=== PATIENT | female | born 1965 | race African-American/Black ===

== ENCOUNTER → 2018-02-03 | Day surgery (SDC) | payer OTHER ==
--- NOTE | 2018-02-04 16:27 | PATH ---
Surgical Pathology Report Patient Name: MP SCHWARTZ [facility]. Rec. #: [id number] /Age/Gender: 1965 (Age: 52) / F Account: [id number] Location: [facility] Taken: 02/03/2018 Received: 02/03/2018 Reported: 02/04/2018 Physicians: Isacc Glaser M.D. Specimen(s) Received A: LEFT BREAST SPECIMEN WITH CALCIFICATIONS B: LEFT BREAST SPECIMEN WITHOUT CALCIFICATIONS Clinical History Nonpalpable lesion Mammographic findings: Microcalcification, suspicious Final Diagnosis A. 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 B. BREAST, LEFT, WITHOUT CALCIFICATIONS, STEREOTACTIC BIOPSY: BENIGN BREAST TISSUE SHOWING SCANT FRAGMENT OF FIBROADENOMA. Electronically Signed Bria Martinez M.D. Gross Description A. Received in formalin labeled "left breast with calcifications," is a 2.5 x 2.5 x 0.3 cm aggregate of ascencio-yellow, irregular to cylindrical portions of fibroadipose tissue. The formalin is filtered and the specimen is entirely submitted in 2 cassettes. B. Received in formalin labeled "left breast without calcifications," is a 1.5 x 1.5 x 0.3 cm aggregate of multiple ascencio-yellow, irregular to cylindrical portions of fibroadipose tissue. The formalin is filtered and the specimen is entirely submitted in one cassette. Time to formalin fixation: 5 minutes Total formalin fixation time: Approximately 7 hours. /02/03/2018 saudi02/03/2018
== END | disposition home or self-care (01) ==
LOC: FMAMMOTONE 09:04
PROVIDERS: ATTEND Internal Medicine
PROC: 0HBU3ZX Excision of Left Breast, Percutaneous Approach, Diagnostic (ICD-10-PCS; principal; 2018-02-03)
DX: D24.2 Benign neoplasm of left breast (principal); N64.89 Other specified disorders of breast; R92.1 Mammographic calcification found on diagnostic imaging of breast
CPT/HCPCS: 19081; 88305-TC

== ENCOUNTER 2018-06-14 09:53 | Inpatient (IN) | payer OTHER ==
--- NOTE | 2018-06-14 12:02 | PDOC ---
History of Present Illness - General Chief Complaint: Vomiting/Diarrhea Stated Complaint: vomiting Time Seen by Provider: 06/14/18 12:01 History Source: Patient Exam Limitations: No Limitations - History of Present Illness Initial Comments: Pt is a 53 yo F, with PMH of HTN, CHF, CAD (with cardiac stents), COPD, and DM, who is presenting with complaints of generalized body aches, sore throat, subjective fevers/chills, NBNB vomiting and nausea, and loose stools x3 days. She has also had cough productive of "yellowish" sputum, which is different from her normal sputum. She has had mid-sternal chest pressure after coughing for the same time period, that has been unchanged. Last tylenol dose was 500 mg PO at 6 am this morning. Pt has had limited appetite but has tolerated a minimal amount of fluids. Pt denies any headache, vision changes, syncope, palpitations, SOB, urinary symptoms, or leg swelling. Social: Pt smokes 2-3 cigarettes per day. Pt denies any alcohol or drug use. 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 Surgical: gastric obstruction repair/anastamosis, cardiac stents Family: no relevant history. 06/14/18 13:24 Past History - Travel Traveled outside of the country in the last 30 days: No Close contact w/someone who was outside of country & ill: No - Past Medical History Allergies/Adverse Reactions: Allergies Allergy/AdvReac Type Severity Reaction Status Date / Time No Known Allergies Allergy Verified 03/31/16 14:16 Home Medications: Ambulatory Orders Amlodipine Besylate [Norvasc -] 10 mg PO DAILY 01/07/16 Canagliflozin [Invokana] 100 mg PO DAILY 01/07/16 Glimepiride [Amaryl -] 4 mg PO DAILY 03/31/16 Anemia: No Asthma: No Cancer: No Cardiac Disorders: Yes (CHF) CVA: No COPD: Yes CHF: Yes Dementia: No Diabetes: Yes GI Disorders: No Disorders: No HTN: Yes Hypercholesterolemia: No Liver Disease: No Seizures: No Thyroid Disease: No - Surgical History Abdominal Surgery: No Appendectomy: No Cardiac Surgery: Yes (STENTS) Cholecystectomy: No Lung Surgery: No Neurologic Surgery: No Orthopedic Surgery: No - Immunization History Immunization Up to Date: No - Suicide/Smoking/Psychosocial Hx Smoking Status: Yes Smoking History: Current every day smoker Have you smoked in the past 12 months: Yes Number of Cigarettes Smoked Daily: 3 Information on smoking cessation initiated: No 'Breaking Loose' booklet given: 03/31/16 Hx Alcohol Use: No Drug/Substance Use Hx: No Substance Use Type: None Hx Substance Use Treatment: No Review of Systems - Review of Systems Able to Perform ROS?: Yes Is the patient limited Sinhala proficient: No Constitutional: Yes: Chills, Fever, Loss of Appetite, Malaise, Weight Stable. No: Diaphoresis, Night Sweats, Weakness HEENTM: Yes: See HPI, Throat Pain, Throat Swelling. No: Recent change in vision , Ear Pain, Ear Discharge, Nose Congestion, Hearing Loss, Mouth Pain, Difficulty Swallowing Respiratory: Yes: See HPI, Cough, Productive cough. No: Orthopnea, Shortness of Breath, Wheezing, Hemoptysis Cardiac (ROS): Yes: Chest Tightness. No: Chest Pain, Edema, Irregular Heart Rate, Lightheadedness, Palpitations, Syncope ABD/GI: Yes: Diarrhea, Nausea, Poor Appetite, Vomiting. No: Constipated, Difficulty Swallowing, Poor Fluid Intake, Abdominal cramping : No: Burning, Dysuria, Pain, Urgency Musculoskeletal: No: Back Pain, Joint Pain, Muscle Weakness Integumentary: No: Rash Neurological: No: Headache, Numbness, Weakness, Unsteady Gait, Dizziness Psychiatric: No: Sleep Pattern Change, Change in Appetite Endocrine: No: Increased Urine, Change in Weight Hematologic/Lymphatic: No: Anemia, Blood Clots, Easy Bleeding, Easy Bruising All Other Systems: Reviewed and Negative *Physical Exam - Vital Signs Last Vital Signs Temp Pulse Resp BP Pulse Ox 100.5 F H 124 H 16 145/75 99 06/14/18 10:08 06/14/18 10:08 06/14/18 10:08 06/14/18 10:08 06/14/18 10:08 - Physical Exam Comments: Pt tachycardic, mild fever (100.5), HR 124, O2 99% on RA. Pt appears uncomfortable, looks like she feels ill, normal body habitus. PE showed pt alert and oriented. rn registry generally intact, muscular strength and sensation intact. Eyes PERRLA, EOMI. Oropharynx with b/l tonsillar exudates and erythema, mild submandibular LAD. No nasal congestion, hearing intact. Clear heart sounds , S1/S2, no JVD, b/l pedal edema, or heart murmur. Diminished lung sounds and expiratory wheezing throughout, no respiratory distress, no crackles or accessory muscle use. No abdominal or CVA tenderness to palpation, no rebound, no guarding. Abdomen soft, non-distended, and with normoactive bowel sounds. Skin without jaundice or rash. 06/14/18 13:09 Moderate Sedation - Procedure Monitoring Vital Signs: Procedure Monitoring Vital Signs Temperature 100.5 F H 06/14/18 10:08 Pulse Rate 124 H 06/14/18 10:08 Respiratory Rate 16 06/14/18 10:08 Blood Pressure 145/75 06/14/18 10:08 O2 Sat by Pulse Oximetry (%) 99 06/14/18 10:08 ED Treatment Course - LABORATORY CBC & Chemistry Diagram: 06/14/18 13:01 06/14/18 13:01 Medical Decision Making - Medical Decision Making Pt was seen at bedside, also will be seen by attending Dr. Glynn. Pt presenting with complaints of generalized body aches, sore throat, subjective fevers/chills, NBNB vomiting and nausea, and loose stools x3 days. She has also had cough productive of "yellowish" sputum, which is different from her normal sputum. She has had mid-sternal chest pressure after coughing for the same time period, that has been unchanged. Last tylenol dose was 500 mg PO at 6 am this morning. Pt has had limited appetite but has tolerated a minimal amount of fluids. Pt denies any headache, vision changes, syncope, palpitations, SOB, urinary symptoms, or leg swelling. Pt tachycardic, mild fever (100.5), HR 124, O2 99% on RA. Pt appears uncomfortable, looks like she feels ill, normal body habitus. PE showed pt alert and oriented. rn registry generally intact, muscular strength and sensation intact. Eyes PERRLA, EOMI. Oropharynx with b/l tonsillar exudates and erythema, mild submandibular LAD. No nasal congestion, hearing intact. Clear heart sounds , S1/S2, no JVD, b/l pedal edema, or heart murmur. Diminished lung sounds and expiratory wheezing throughout, no respiratory distress, no crackles or accessory muscle use. No abdominal or CVA tenderness to palpation, no rebound, no guarding. Abdomen soft, non-distended, and with normoactive bowel sounds. Skin without jaundice or rash. Considering viral illness/influenza vs strep pharyngitis vs viral URI vs pneumonia vs pericarditis 2/2 URI. Ordered work-up including CBC, CMP, cardiac profile, ECG, rapid influenza and rapid strep, UA, urine culture, chest x-ray. Provided 500 mL IV NS, 4 mg IV zofran, 1 g ofirmev, and duoneb for improvement of fever, dehydration, and wheezing. Will continue to reassess pt and monitor for symptomatic improvement. ECG: sinus tachycardia, intervals WNL. No TWIs or significant ST segment changes. 06/14/18 13:02 GAS positive. 06/14/18 13:10 Influenza negative. Pending CBC, CMP and chest x-ray. 06/14/18 13:17 CBC: WBC 19.2 -- ordered blood cultures, lactic acid to r/o sepsis CMP: Gluc 234 -- providing pt fluids, will give an additional 1 L IV NS Trop <.02 Pending chest x-ray, pt on transport list. Will likely provide unasyn for abx coverage after cultures drawn. 06/14/18 13:46 Chest x-ray shows no obvious lobar infiltrate or effusion. Heart borders clear. Cultures drawn and sent to lab Providing 3 g IVPB Unasyn Pt still complaining of nausea, difficulty tolerating PO fluid intake, providing 10 mg IV reglan and 25 mg IV benadryl. 06/14/18 14:28 Paging hospitalist team for admission for IV antibiotics and sepsis r/o. 06/14/18 14:46 Hospitalist team accepted pt for admission (med/surg inpatient). Pt resting comfortably. 06/14/18 15:13 *DC/Admit/Observation/Transfer Diagnosis at time of Disposition: Strep pharyngitis CHF (congestive heart failure) Qualifiers: Heart failure type: unspecified Heart failure chronicity: chronic Qualified Code(s): I50.9 - Heart failure, unspecified COPD (chronic obstructive pulmonary disease) Qualifiers: COPD type: unspecified COPD Qualified Code(s): J44.9 - Chronic obstructive pulmonary disease, unspecified Diabetes mellitus Qualifiers: Diabetes mellitus type: type 2 Diabetes mellitus [facility] insulin use: without [facility] use Diabetes mellitus complication status: without complication Qualified Code(s): E11.9 - Type 2 diabetes mellitus without complications - Discharge Dispostion Condition at time of disposition: Stable Decision to Admit order: Yes - Referrals - Patient Instructions - Post Discharge Activity
[2018-06-14] MEDS ORDERED: ACETAMINOPHEN 1000 MG/100 ML VIAL (NON FORMULARY) IVPB ONE (12:17)
[2018-06-14] MEDS ORDERED: SODIUM CHLORIDE 1,000 ML IV STA ×2 (12:17→13:45)
[2018-06-14] MEDS ORDERED: ONDANSETRON 4 MG/2 ML VIAL IVPUSH ONE (12:17)
[2018-06-14] MEDS ORDERED: SODIUM CHLORIDE 500 ML IV STA (12:20)
[2018-06-14] MEDS ORDERED: ONDANSETRON 4 MG/2 ML VIAL ONE (12:54)
[2018-06-14] MEDS ORDERED: ALBUTEROL SO4 2.5/IPRATROPIUM 0.5 INH SOL 3 ML VIAL.NEB. NEB ONE (12:59)
[2018-06-14 13:16] LABS: BASO % 0.6 % (0-2.0); HEMATOCRIT 39.5 % (32.4-45.2); HEMOGLOBIN 13.9 GM/dL (10.7-15.3); LYMPH % 13.3 % (8-40); MCH 29.8 pg (25.7-33.7); MCHC 35.2 g/dl (32.0-36.0); MEAN CELL VOLUME 84.8 fl (80-96); MEAN PLT VOLUME 8.4 fl (7.5-11.1); NEUT % 81.1 % (42.8-82.8); PLATELET COUNT 253 K/MM3 (134-434); RBC 4.66 M/mm3 (3.60-5.2); RDW 14.8 % (11.6-15.6); WHITE BLOOD COUNT 19.2 K/mm3 (4.0-10.0)
[2018-06-14 13:40] LABS: ALBUMIN 3.6 g/dl (3.4-5.0); ALK PHOS 128 U/L (45-117); ANION GAP 11 MMOL/L (8-16); BILIRUBIN,TOTAL 0.4 mg/dL (0.2-1); BLOOD UREA NITROGEN 7 mg/dL (7-18); CALCIUM 9.1 mg/dL (8.5-10.1); CHLORIDE 99 mmol/L (98-107); CO2 22 mmol/L (21-32); CREATININE 0.7 mg/dL (0.55-1.3); GLUCOSE,RANDOM 234 mg/dL (74-106); POTASSIUM 3.8 mmol/L (3.5-5.1); SGOT/AST 17 U/L (15-37); SGPT/ALT 25 U/L (13-61); SODIUM 133 mmol/L (136-145)
[2018-06-14] MEDS ORDERED: ALBUTEROL SO4 0.083% IH SOL 2.5 MG/3 ML VIAL.NEB. NEB ONE (14:08)
[2018-06-14] MEDS ORDERED: ACETAMINOPHEN INJECTION 100 ML IVPB ONE (14:08)
[2018-06-14] MEDS ORDERED: AMPICILLIN NA/SULBACTAM NA 3 GM in SODIUM CHLORIDE 100 ML IVPB ONE (14:24)
[2018-06-14] MEDS ORDERED: METOCLOPRAMIDE HCL INJECTION 10 MG/2 ML VIAL IVPUSH ONE (14:25)
[2018-06-14] MEDS ORDERED: METOCLOPRAMIDE HCL INJECTION 10 MG/2 ML VIAL ONE (14:29)
[2018-06-14] MEDS ORDERED: BENZOCAINE/MENTH/CETYLPYRD CL 1 EACH LOZENGE MM PRN (15:44)
[2018-06-14] MEDS ORDERED: ALBUTEROL SO4 2.5/IPRATROPIUM 0.5 INH SOL 3 ML VIAL.NEB. NEB PRN (15:44)
--- NOTE | 2018-06-14 15:48 | HP ---
CHIEF COMPLAINT: fever, vomiting PCP: HISTORY OF PRESENT ILLNESS:Pt is a 53 yo F, with PMH of HTN, CHF, CAD (with cardiac stents 4 years ago ), COPD, and DM, who is presenting with complaints of generalized body aches, sore throat, subjective fevers/chills ( in home 102F) , NBNB vomiting and nausea, and loose stools x3 days. She has also had cough productive of "yellowish" sputum, which is different from her normal sputum. Reports sore throat from 3 days. She has had mid-sternal chest pressure after coughing for the same time period, that has been unchanged. 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 Denies trouble in swallowing, breathing , change in voice, discharge from ear. Denies post nasal drip. Also repors vomiting and diarrhoea from 3 days, no blood, watery diarrhoea. denies pain in belly. statets she is unable to keep anything in. Also reports decrease in urine output. ER course was notable for: (1)cbc, cmp. lactic acid (2)cxr (3) Recent Travel: no PAST MEDICAL HISTORY: as above PAST SURGICAL HISTORY: gastro jejunostomy for ulcer Social History: Smokin-4 cigs a day Alcohol:no Drugs: no Family History: not relevent Allergies No Known Allergies Allergy (Verified 03/31/16 14:16) HOME MEDICATIONS: Home Medications Medication Instructions Recorded Amlodipine Besylate [Norvasc -] 10 mg PO DAILY 01/07/16 Canagliflozin [Invokana] 100 mg PO DAILY 01/07/16 Glimepiride [Amaryl -] 4 mg PO DAILY 03/31/16 REVIEW OF SYSTEMS CONSTITUTIONAL: Absent: fever, chills, diaphoresis, generalized weakness, malaise, loss of appetite, weight change HEENT: Absent: rhinorrhea, nasal congestion, throat pain, throat swelling, difficulty swallowing, mouth swelling, ear pain, eye pain, visual changes CARDIOVASCULAR: Absent: chest pain, syncope, palpitations, irregular heart rate, lightheadedness , peripheral edema RESPIRATORY: Absent: cough, shortness of breath, dyspnea with exertion, orthopnea, wheezing, stridor, hemoptysis GASTROINTESTINAL: Absent: abdominal pain, abdominal distension, nausea, vomiting, diarrhea, constipation, melena, hematochezia GENITOURINARY: Absent: dysuria, frequency, urgency, hesitancy, hematuria, flank pain, genital pain MUSCULOSKELETAL: Absent: myalgia, arthralgia, joint swelling, back pain, neck pain SKIN: Absent: rash, itching, pallor HEMATOLOGIC/IMMUNOLOGIC: Absent: easy bleeding, easy bruising, lymphadenopathy, frequent infections ENDOCRINE: Absent: unexplained weight gain, unexplained weight loss, heat intolerance, cold intolerance NEUROLOGIC: Absent: headache, focal weakness or paresthesias, dizziness, unsteady gait, seizure, mental status changes, bladder or bowel incontinence PSYCHIATRIC: Absent: anxiety, depression, suicidal or homicidal ideation, hallucinations. PHYSICAL EXAMINATION Vital Signs - 24 hr 06/14/18 06/14/18 10:08 15:39 Temperature 100.5 F H 101.2 F H Pulse Rate 124 H Pulse Rate [ 117 H Right Radial] Respiratory 16 18 Rate Blood Pressure 145/75 Blood Pressure 120/65 [Left Arm] O2 Sat by Pulse 99 95 Oximetry (%) GENERAL: Awake, alert, and fully oriented, \\ HEAD: Normal with no signs of trauma. EYES: Pupils equal, round and reactive to light, \\ EARS, NOSE, THROAT: Ears normal, nares patent, dry mucus membrane, exudate present on tonsils , no posterior pharyngeal wall bulging NECK: Normal range of motion, supple without lymphadenopathy, JVD, or masses. LUNGS: Breath sounds equal, clear to auscultation bilaterally. No wheezes, and no crackles. No accessory muscle use. HEART: Tachycardia Regular rate and rhythm, normal S1 and S2 without murmur, rub or gallop. ABDOMEN: Soft, nontender, not distended, normoactive bowel sounds, no guarding, no rebound, no masses. mid line scar UPPER EXTREMITIES: 2+ pulses, warm, well-perfused. No cyanosis. No clubbing. No peripheral edema. LOWER EXTREMITIES: 2+ pulses, warm, well-perfused. No calf tenderness. No peripheral edema. NEUROLOGICAL: Normal speech. Normal gait. PSYCHIATRIC: Cooperative. Good eye contact. Appropriate mood and affect. SKIN: Warm, dry, Laboratory Results - last 24 hr 06/14/18 06/14/18 06/14/18 12:28 12:28 13:01 WBC 19.2 H RBC 4.66 Hgb 13.9 Hct 39.5 D MCV 84.8 MCH 29.8 D MCHC 35.2 RDW 14.8 D Plt Count 253 D MPV 8.4 D Absolute Neuts (auto) 15.5 H Neutrophils % 81.1 D Lymphocytes % 13.3 Monocytes % 5.0 Eosinophils % 0.0 D Basophils % 0.6 Nucleated RBC % 0 Sodium Potassium Chloride Carbon Dioxide Anion Gap BUN Creatinine Creat Clearance w eGFR Random Glucose Lactic Acid Calcium Total Bilirubin AST ALT Alkaline Phosphatase Creatine Kinase Troponin I Total Protein Albumin Influenza A (Rapid) Negative Influenza B (Rapid) Negative Group A Strep Rapid Positive 06/14/18 06/14/18 13:01 14:23 WBC RBC Hgb Hct MCV MCH MCHC RDW Plt Count MPV Absolute Neuts (auto) Neutrophils % Lymphocytes % Monocytes % Eosinophils % Basophils % Nucleated RBC % Sodium 133 L Potassium 3.8 Chloride 99 Carbon Dioxide 22 Anion Gap 11 BUN 7 Creatinine 0.7 Creat Clearance w eGFR > 60 Random Glucose 234 H Lactic Acid 1.8 Calcium 9.1 Total Bilirubin 0.4 AST 17 ALT 25 Alkaline Phosphatase 128 H Creatine Kinase 34 Troponin I < 0.02 Total Protein 7.0 Albumin 3.6 Influenza A (Rapid) Influenza B (Rapid) Group A Strep Rapid ASSESSMENT/PLAN: Strep throat IV ceftriaxone 1 gm dialy monitor vitals acetaminophen for fever cepacol lozenges robitussin for cough. gargles. drink plenty of liquid Nausea/ vomiting/ diarrhoea Stool studies Iv fluid maintain urine output of 0.5 to 1ml/kg/hr zofran prn CAD/ CHF / htn monitor BP Pt states she never had CHF exabration home meds [facility] [address] [facility] no response pt don't remember her meds we will give her aspirin and lipitor H/o copd stable states she never had copd exbration is not using inhalers in home duoneb prn DM hold oral hypoglycemic bgm insulin sliding scale Fluid: Ns 75 mlhr electrolyte: repeat in am nutrition ; diabetic diet if tolerates dispo: med surg Visit type - Emergency Visit Emergency Visit: Yes ED Registration Date: 06/14/18 Care time: The patient presented to the Emergency Department on the above date and was hospitalized for further evaluation of their emergent condition. - New Patient This patient is new to me today: Yes Date on this admission: 06/14/18 - Critical Care Critical Care patient: No
[2018-06-14] MEDS ORDERED: IBUPROFEN 800 MG/8 ML IJ IVPB ONE ×2 (15:55→16:01)
[2018-06-14] MEDS ORDERED: ONDANSETRON 4 MG/2 ML VIAL IVPB PRN (15:58)
[2018-06-14] MEDS: SODIUM CHLORIDE 1,000 ML IV SCH (16:20)
--- NOTE | 2018-06-14 16:22 | PN ---
Teaching Attending Note Name of Resident: David Caldera ATTENDING PHYSICIAN STATEMENT I saw and evaluated the patient. I reviewed the resident's note and discussed the case with the resident. I agree with the resident's findings and plan as documented. Ms Morocho is a very pleasant 53 year old female who comes into the hospital secondary to feeling ill. 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 On Thursday she notes that she started to feel ill. She had fevers and chills (she did not check her temperature), lightheadedness without syncope, sore throat and pain on swallowing, cough productive of yellow sputum, chest pain with coughing, nausea and vomiting (non-bloody), watery diarrhea (~3 times a day, no blood or melena). She attempted to go to work today but was feeling ill so came to the hospital instead. She denies vertigo, chest pressure, difficulty or pain on urination, or leg swelling. She is currently feeling ill. PMHx 1. CAD 2. DM 3. HTN PSHx 1. Stent placement Allergies NKDA Home Medications Medication Instructions Recorded Amlodipine Besylate [Norvasc -] 10 mg PO DAILY 01/07/16 Canagliflozin [Invokana] 100 mg PO DAILY 01/07/16 Glimepiride [Amaryl -] 4 mg PO DAILY 03/31/16 SHx 1. Smokes 3 cigarettes/day 2. Denies alcohol and drug use FHx Mother of lung cancer ROS Full review of systems obtained, as per HPI and otherwise negative OBJECTIVE: Last Vital Signs Temp Pulse Resp BP Pulse Ox 38.4 C H 117 H 18 120/65 95 06/14/18 15:39 06/14/18 15:39 06/14/18 15:39 06/14/18 15:39 06/14/18 15:39 Gen: nad, ill appearing HEENT: perrla, eomi, moist mucous membranes with tonsillar exudate Pulm: ctab w/o w/r/r CV: tachycardic but regular w/o m/r/g Abd: midline scar, +bs, s/nt/nd Ext: no c/c/e CBC, BMP 06/14/18 13:01 06/14/18 13:01 ASSESSMENT AND PLAN: Problem List - Problems (1) Sepsis Assessment/Plan: -most likely secondary to strep pharyngitis -however concerning considering exposure -will check HIV and Hepatitis panel since draws blood -received unasyn in the ED, will change to rocephin -continue IVF Code(s): A41.9 - SEPSIS, UNSPECIFIED ORGANISM (2) Strep pharyngitis Assessment/Plan: -strep positive -will place on rocephin -monitor for improvement Code(s): J02.0 - STREPTOCOCCAL PHARYNGITIS (3) Diabetes mellitus Assessment/Plan: -diabetic diet -FSBS and SSI Code(s): E11.9 - TYPE 2 DIABETES MELLITUS WITHOUT COMPLICATIONS Qualifiers: Diabetes mellitus type: type 2 Diabetes mellitus superintendent terminal insulin use: without [facility] use Diabetes mellitus complication status: without complication Qualified Code(s): E11.9 - Type 2 diabetes mellitus without complications (4) CAD (coronary artery disease) Assessment/Plan: -with chest pain, but sounds pleuritic -will obtain home medication regimen, not on any CAD medications -cardiac enzymes x3 Code(s): I25.10 - ATHSCL HEART DISEASE OF [place] CORONARY ARTERY W/O ANG PCTRS (5) Tobacco abuse Assessment/Plan: -counselled cessation -patient says that she is quitting and has not smoked since feeling ill Code(s): Z72.0 - TOBACCO USE (6) Gastroenteritis Assessment/Plan: -will check stool cultures, parasites, c diff -also check for hepatitis A Code(s): K52.9 - NONINFECTIVE GASTROENTERITIS AND COLITIS, UNSPECIFIED (7) Dehydration Assessment/Plan: -hydration with IVF Code(s): E86.0 - DEHYDRATION
[2018-06-14 16:35] LABS: URINE APPEARANCE CLEAR; URINE BILIRUBIN NEGATIVE (<2.0 mg/dL); URINE COLOR LTYELLOW; URINE GLUCOSE (UA) 3+ (NEGATIVE); URINE KETONE NEGATIVE (NEGATIVE); URINE LEUK ESTERASE NEGATIVE (NEGATIVE); URINE NITRITE NEGATIVE (NEGATIVE); URINE PROTEIN NEGATIVE (NEGATIVE); URINE UROBILINOGEN NEGATIVE mg/dL (0.2-1.0)
[2018-06-14] MEDS ORDERED: ASPIRIN 81 MG CHEWABLE TABLETS ONE (16:38)
[2018-06-14] MEDS ORDERED: CEFTRIAXONE 1 GM/50 ML BAG ONE (16:39)
[2018-06-14] MEDS: CEFTRIAXONE 1 GM in DEXTROSE 5%-WATER - 50 ML IVPB SCH (16:42)
[2018-06-14] MEDS: ASPIRIN 81 MG CHEWABLE TABLETS PO SCH (16:43)
[2018-06-14] MEDS ORDERED: INSULIN (NOVOLOG) ASPART 100 UNITS/ML 10ML VIAL ONE (16:59)
[2018-06-14] MEDS: INSULIN SLIDING SCALE (NOVOLOG) 1 VIAL SQ SCH (17:00)
--- NOTE | 2018-06-14 18:44 | PDOC ---
Attending Attestation - Resident Resident Name: Dotty Hunter - ED Attending Attestation I have performed the following: I have examined & evaluated the patient, The case was reviewed & discussed with the resident, I agree w/resident's findings & plan, Exceptions are as noted - HPI HPI: 06/14/18 18:42 53 yo F 53 yo F PMH of HTN, CHF, CAD (with cardiac stents), COPD, and DM, here wtih c/o cough congestion sore throat subjective fevers and chills, myalgia and n/v / d. no travel. no known sick contacts. 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 no rash. no other complaints. 06/14/18 18:44 - Physicial Exam PE: 06/14/18 18:45 awake alert lungs with bilateral wheezing, crackles at bases. heart rrr no mrg abd soft nt nd. ext wwp no edema. no calf tenderness. alert oriented x 3. throat erythema. - Medical Decision Making 06/14/18 18:46 pt with cough congestions, wheezing on exam. n/v/d. differential flu, strept throat, pneumonia, dehyration sepsis, uti, renal failurel. plan ivf nebs tylenol labs cultrues and cxr pt throat with strept positive cxr negative for pna. due to dm, tachycardia. will admit givein unasyn. tylenol duonebs and iv fluids. Heart Score/ECG Review #1 General ECG Interpretation: Sinus Rhythm, Normal Intervals Compared to previous ECG there are: Other (sinus tachycardia 125 bpm.)
--- NOTE | 2018-06-14 20:28 | EKG ---
Test Reason : Blood Pressure : / mmHG Vent. Rate : 125 BPM Atrial Rate : 125 BPM P-R Int : 140 ms QRS Dur : 078 ms QT Int : 302 ms P-R-T Axes : 062 064 067 degrees QTc Int : 435 ms SINUS TACHYCARDIA POSSIBLE LEFT ATRIAL ENLARGEMENT ANTEROSEPTAL INFARCT , AGE UNDETERMINED ABNORMAL ECG NO PREVIOUS ECGS AVAILABLE Confirmed by LISBETH PARSON MD ([id number]) on 06/14/2018 8:27:57 PM Referred By: Confirmed By:LISBETH PASRON MD
[2018-06-15] MEDS: SODIUM CHLORIDE 1,000 ML IV SCH ×2 (01:24→16:52)
[2018-06-15] MEDS: ATORVASTATIN CA 40 MG TABLET (FP) PO SCH ×2 (01:24→21:50)
[2018-06-15] MEDS: INSULIN SLIDING SCALE (NOVOLOG) 1 VIAL SQ SCH ×5 (01:39→21:55)
[2018-06-15] MEDS: guaiFENesin 200 MG/10 ML 10 ML UNIT-DOSE CUPS PO PRN ×2 (04:50→21:53)
[2018-06-15 05:59] VITALS: BMI 25.4
[2018-06-15 07:39] LABS: BASO % 0.2 % (0-2.0); EOS % 0.5 % (0-4.5); HEMATOCRIT 35.3 % (32.4-45.2); LYMPH % 15.3 % (8-40); MCH 28.9 pg (25.7-33.7); MCHC 33.9 g/dl (32.0-36.0); MEAN CELL VOLUME 85.4 fl (80-96); MEAN PLT VOLUME 8.5 fl (7.5-11.1); MONO % 6.8 % (3.8-10.2); NEUT % 77.2 % (42.8-82.8); PLATELET COUNT 234 K/MM3 (134-434); RBC 4.13 M/mm3 (3.60-5.2); RDW 14.9 % (11.6-15.6); WHITE BLOOD COUNT 19.6 K/mm3 (4.0-10.0)
--- NOTE | 2018-06-15 07:52 | PN ---
Physical Exam: SUBJECTIVE: Patient seen and examined no new course overnight pt feels little better. No vomiting and diarrhoea overnight Pt didn't eat or drink any thing since yesterday although she is on clear liquid diet OBJECTIVE: Vital Signs Period Temp Pulse Resp BP Sys/Shetty Pulse Ox Last 24 Hr 97.9 F-101.2 F 84-124 16-20 92-145/53-75 95-99 GENERAL: Awake, alert, and fully oriented, \ HEAD: Normal with no signs of trauma. EYES: Pupils equal, round and reactive to light, \ EARS, NOSE, THROAT: Ears normal, nares patent, moist mucus membrane, exudate present on tonsils , no posterior pharyngeal wall bulging NECK: mild tenderness in b/l submandibular lymphnodes LUNGS: Breath sounds equal, clear to auscultation bilaterally. No wheezes, and no crackles. No accessory muscle use. HEART: Tachycardia Regular rate and rhythm, normal S1 and S2 without murmur, rub or gallop. ABDOMEN: Soft, nontender, not distended, normoactive bowel sounds, no guarding, no rebound, no masses. mid line scar UPPER EXTREMITIES: 2+ pulses, warm, well-perfused. No cyanosis. No clubbing. No peripheral edema. LOWER EXTREMITIES: warm, well-perfused. No calf tenderness. No peripheral edema. NEUROLOGICAL: Normal speech. Normal gait. PSYCHIATRIC: Cooperative. Good eye contact. Appropriate mood and affect. SKIN: Warm, dry, Laboratory Results - last 24 hr 06/14/18 06/14/18 06/14/18 12:23 12:28 12:28 WBC RBC Hgb Hct MCV MCH MCHC RDW Plt Count MPV Absolute Neuts (auto) Neutrophils % Lymphocytes % Monocytes % Eosinophils % Basophils % Nucleated RBC % Sodium Potassium Chloride Carbon Dioxide Anion Gap BUN Creatinine Creat Clearance w eGFR POC Glucometer Random Glucose Lactic Acid Calcium Total Bilirubin AST ALT Alkaline Phosphatase Creatine Kinase Troponin I Total Protein Albumin Urine Color Ltyellow Urine Appearance Clear Urine pH 6.0 Ur Specific [place] 1.005 L Urine Protein Negative Urine Glucose (UA) 3+ H Urine Ketones Negative Urine Blood Negative Urine Nitrite Negative Urine Bilirubin Negative Urine Urobilinogen Negative Ur Leukocyte Esterase Negative HIV 1&2 Antibody Screen HIV P24 Antigen Influenza A (Rapid) Negative Influenza B (Rapid) Negative Group A Strep Rapid Positive 06/14/18 06/14/18 06/14/18 13:01 13:01 14:23 WBC 19.2 H RBC 4.66 Hgb 13.9 Hct 39.5 D MCV 84.8 MCH 29.8 D MCHC 35.2 RDW 14.8 D Plt Count 253 D MPV 8.4 D Absolute Neuts (auto) 15.5 H Neutrophils % 81.1 D Lymphocytes % 13.3 Monocytes % 5.0 Eosinophils % 0.0 D Basophils % 0.6 Nucleated RBC % 0 Sodium 133 L Potassium 3.8 Chloride 99 Carbon Dioxide 22 Anion Gap 11 BUN 7 Creatinine 0.7 Creat Clearance w eGFR > 60 POC Glucometer Random Glucose 234 H Lactic Acid 1.8 Calcium 9.1 Total Bilirubin 0.4 AST 17 ALT 25 Alkaline Phosphatase 128 H Creatine Kinase 34 Troponin I < 0.02 Total Protein 7.0 Albumin 3.6 Urine Color Urine Appearance Urine pH Ur Specific [place] Urine Protein Urine Glucose (UA) Urine Ketones Urine Blood Urine Nitrite Urine Bilirubin Urine Urobilinogen Ur Leukocyte Esterase HIV 1&2 Antibody Screen HIV P24 Antigen Influenza A (Rapid) Influenza B (Rapid) Group A Strep Rapid 06/14/18 06/14/18 06/14/18 16:52 18:20 21:20 WBC RBC Hgb Hct MCV MCH MCHC RDW Plt Count MPV Absolute Neuts (auto) Neutrophils % Lymphocytes % Monocytes % Eosinophils % Basophils % Nucleated RBC % Sodium Potassium Chloride Carbon Dioxide Anion Gap BUN Creatinine Creat Clearance w eGFR POC Glucometer 284 Random Glucose Lactic Acid Calcium Total Bilirubin AST ALT Alkaline Phosphatase Creatine Kinase 35 Troponin I < 0.02 Total Protein Albumin Urine Color Urine Appearance Urine pH Ur Specific [place] Urine Protein Urine Glucose (UA) Urine Ketones Urine Blood Urine Nitrite Urine Bilirubin Urine Urobilinogen Ur Leukocyte Esterase HIV 1&2 Antibody Screen Negative HIV P24 Antigen Negative Influenza A (Rapid) Influenza B (Rapid) Group A Strep Rapid 06/15/18 06/15/18 06/15/18 01:30 06:18 06:35 WBC 19.6 H RBC 4.13 Hgb 12.0 Hct 35.3 MCV 85.4 MCH 28.9 MCHC 33.9 RDW 14.9 Plt Count 234 MPV 8.5 Absolute Neuts (auto) 15.1 H Neutrophils % 77.2 Lymphocytes % 15.3 Monocytes % 6.8 Eosinophils % 0.5 D Basophils % 0.2 Nucleated RBC % 0 Sodium Potassium Chloride Carbon Dioxide Anion Gap BUN Creatinine Creat Clearance w eGFR POC Glucometer 145 142 Random Glucose Lactic Acid Calcium Total Bilirubin AST ALT Alkaline Phosphatase Creatine Kinase Troponin I Total Protein Albumin Urine Color Urine Appearance Urine pH Ur Specific [place] Urine Protein Urine Glucose (UA) Urine Ketones Urine Blood Urine Nitrite Urine Bilirubin Urine Urobilinogen Ur Leukocyte Esterase HIV 1&2 Antibody Screen HIV P24 Antigen Influenza A (Rapid) Influenza B (Rapid) Group A Strep Rapid Active Medications Generic Name Dose Route Start Last Admin Trade Name Freq PRN Reason Stop Dose Admin Acetaminophen 650 mg 06/14/18 15:43 Tylenol - PO Q6H PRN FEVER Albuterol/Ipratropium 1 amp 06/14/18 15:44 06/15/18 06:41 Duoneb - NEB 1 amp Q6H PRN Administration SHORTNESS OF BREATH Aspirin 81 mg 06/14/18 15:45 06/14/18 16:43 Asa - PO 81 mg DAILY [facility] Administration Atorvastatin Calcium 40 mg 06/14/18 22:00 06/15/18 01:24 Lipitor - PO 40 mg HS [facility] Administration Benzocaine/Menthol 2 each 06/14/18 15:44 06/15/18 01:24 Cepacol Lozenge - MM 2 each PRN PRN Administration SORE THROAT Guaifenesin 10 ml 06/15/18 04:30 06/15/18 04:50 Robitussin - PO 10 ml Q8H PRN Administration COUGH Ceftriaxone Sodium 1 gm/ 50 mls @ 100 mls/hr 06/14/18 15:45 06/14/18 16:42 Dextrose IVPB 100 mls/hr DAILY [facility] Administration Protocol Sodium Chloride 1,000 mls @ 75 mls/hr 06/14/18 15:45 06/15/18 01:24 Normal Saline - IV 75 mls/hr ASDIR [facility] Administration Insulin Aspart 1 vial 06/14/18 16:30 06/15/18 06:21 Novolog Vial Sliding Scale - SQ Not Given ACHS [facility] Protocol Lidocaine/Aluminum/Magnesium/Simeth 5 ml 06/15/18 12:00 Magic Mouthwash *Sjr Formula* - MM Q6HPO [facility] Ondansetron HCl 4 mg 06/14/18 15:58 Zofran Injection IVPB Q6H PRN NAUSEA ASSESSMENT/PLAN: Strep throat / pharyngitis Pt feels better, afebrile overnight got one dose of unasyn in er IV ceftriaxone 1 gm dialy monitor vitals acetaminophen for fever cepacol lozenges robitussin for cough. gargles. drink plenty of liquid magic mouth wash Nausea/ vomiting/ diarrhoea likely viral gastroentritis improving Stool studies pending Iv fluid maintain urine output of 0.5 to 1ml/kg/hr. Reports urine color is clear zofran prn advise to drink liquids CAD/ CHF / htn monitor BP Pt states she never had CHF exabration continue home meds pt don't remember her meds we will give her aspirin and lipitor H/o copd stable states she never had copd exbration is not using inhalers in home duoneb prn DM hold oral hypoglycemic bgm insulin sliding scale Fluid: Ns 75 mlhr electrolyte: repeat in am nutrition ; clear liquid. If tolerates than increase to soft diet dispo: med surg Visit type - Emergency Visit Emergency Visit: Yes ED Registration Date: 06/14/18 Care time: The patient presented to the Emergency Department on the above date and was hospitalized for further evaluation of their emergent condition. - New Patient This patient is new to me today: No - Critical Care Critical Care patient: No
[2018-06-15 08:10] LABS: ALBUMIN 2.8 g/dl (3.4-5.0); ALK PHOS 109 U/L (45-117); ANION GAP 7 MMOL/L (8-16); BILIRUBIN,TOTAL 0.6 mg/dL (0.2-1); BLOOD UREA NITROGEN 5 mg/dL (7-18); CALCIUM 8.5 mg/dL (8.5-10.1); CHLORIDE 106 mmol/L (98-107); CO2 25 mmol/L (21-32); CREATININE 0.5 mg/dL (0.55-1.3); GLUCOSE,RANDOM 153 mg/dL (74-106); MAGNESIUM 1.9 mg/dL (1.8-2.4); PHOSPHOROUS 2.5 mg/dL (2.5-4.9); POTASSIUM 3.8 mmol/L (3.5-5.1); SGOT/AST 28 U/L (15-37); SGPT/ALT 25 U/L (13-61); SODIUM 138 mmol/L (136-145); TOT PROT 5.9 g/dl (6.4-8.2)
[2018-06-15] MEDS ORDERED: cefTRIAXone SODIUM 1 GM VIAL ONE (08:21)
[2018-06-15] MEDS ORDERED: PT OWN MED DRAWER 7, Y5N ONE (08:21)
[2018-06-15] MEDS ORDERED: DEXTROSE 5%-WATER - 50 ML IVPB ONE (08:22)
[2018-06-15] MEDS: ASPIRIN 81 MG CHEWABLE TABLETS PO SCH (10:17)
[2018-06-15] MEDS: CEFTRIAXONE 1 GM in DEXTROSE 5%-WATER - 50 ML IVPB SCH (10:17)
--- NOTE | 2018-06-15 11:15 | PN ---
Teaching Attending Note Name of Resident: David Caldera ATTENDING PHYSICIAN STATEMENT I saw and evaluated the patient. I reviewed the resident's note and discussed the case with the resident. I agree with the resident's findings and plan as documented. SUBJECTIVE: Ms Morocho says she is feeling a little bit better. Still with soreness in her throat and tonsils but improved. Has a non-productive cough. Denies cp, sob, n/v. Asking for something to eat. OBJECTIVE: Last Vital Signs Temp Pulse Resp BP Pulse Ox 36.6 C 98 H 20 130/66 98 06/15/18 06:00 06/15/18 06:00 06/15/18 06:00 06/15/18 06:00 06/15/18 01:15 Gen: nad HEENT: thrush Pulm: ctab, non-productive cough CV: rrr w/o m/r/g Abd: +bs, s/nt/nd Ext: no c/c/e, tremor CBC, BMP 06/15/18 06:35 06/15/18 06:35 ASSESSMENT AND PLAN: (1) Sepsis Assessment/Plan: -still with significant leukocytosis -otherwise improved -HIV negative, await hepatitis panel -continue rocephin and hydration -monitor for improvement -if no significant improvement tomorrow, consult ID Code(s): A41.9 - SEPSIS, UNSPECIFIED ORGANISM (2) Strep pharyngitis Assessment/Plan: -strep positive -continue with rocephin -also appears has thrush -will start nystatin swish and swallow Code(s): J02.0 - STREPTOCOCCAL PHARYNGITIS (3) Diabetes mellitus Assessment/Plan: -diabetic diet -FSBS and SSI Code(s): E11.9 - TYPE 2 DIABETES MELLITUS WITHOUT COMPLICATIONS Qualifiers: Diabetes mellitus type: type 2 Diabetes mellitus bed bug exterminator insulin use: without bed bug exterminator use Diabetes mellitus complication status: without complication Qualified Code(s): E11.9 - Type 2 diabetes mellitus without complications (4) CAD (coronary artery disease) Assessment/Plan: -cardiac enzymes x3 negative -chest pain resolved -pleuritic Code(s): I25.10 - ATHSCL HEART DISEASE OF [place] CORONARY ARTERY W/O ANG PCTRS (5) Tobacco abuse Assessment/Plan: -counselled cessation -patient says that she is quitting and has not smoked since feeling ill Code(s): Z72.0 - TOBACCO USE (6) Gastroenteritis Assessment/Plan: -currently resolved -follow up stool studies Code(s): K52.9 - NONINFECTIVE GASTROENTERITIS AND COLITIS, UNSPECIFIED (7) Dehydration Assessment/Plan: -continue IVF Code(s): E86.0 - DEHYDRATION (8) Tremors -says has been present since Thursday, new -also says had tingling prior to admission on L side but now resolved -will check CT scan of the head -neurology consult Problem List - Problems (1) Sepsis Code(s): A41.9 - SEPSIS, UNSPECIFIED ORGANISM (2) Strep pharyngitis Code(s): J02.0 - STREPTOCOCCAL PHARYNGITIS (3) Diabetes mellitus Code(s): E11.9 - TYPE 2 DIABETES MELLITUS WITHOUT COMPLICATIONS Qualifiers: Diabetes mellitus type: type 2 Diabetes mellitus assisted insulin use: without assisted use Diabetes mellitus complication status: without complication Qualified Code(s): E11.9 - Type 2 diabetes mellitus without complications (4) CAD (coronary artery disease) Code(s): I25.10 - ATHSCL HEART DISEASE OF [place] CORONARY ARTERY W/O ANG PCTRS (5) Tobacco abuse Code(s): Z72.0 - TOBACCO USE (6) Gastroenteritis Code(s): K52.9 - NONINFECTIVE GASTROENTERITIS AND COLITIS, UNSPECIFIED (7) Dehydration Code(s): E86.0 - DEHYDRATION
[2018-06-15] MEDS: MAG HYDROX/ALH/SMC/DPHA/LIDO 240 ML MOUTHWASH MM SCH ×3 (14:42→23:11)
[2018-06-15] MEDS: NYSTATIN 500,000 UNITS/5 ML SUSPENSION PO SCH ×3 (14:52→23:20)
[2018-06-15] MEDS: ACETAMINOPHEN 325 MG TABLET (FP) PO PRN (18:17)
[2018-06-16 03:14] LABS: HEP.C VIRUS AB <0.1 s/co ratio (0.0-0.9)
[2018-06-16] MEDS: ACETAMINOPHEN 325 MG TABLET (FP) PO PRN (03:35)
[2018-06-16] MEDS: MAG HYDROX/ALH/SMC/DPHA/LIDO 240 ML MOUTHWASH MM SCH ×2 (06:05→12:34)
[2018-06-16] MEDS: NYSTATIN 500,000 UNITS/5 ML SUSPENSION PO SCH ×2 (07:06→12:43)
[2018-06-16] MEDS: INSULIN SLIDING SCALE (NOVOLOG) 1 VIAL SQ SCH ×2 (07:06→12:33)
[2018-06-16 07:23] LABS: BASO % 0.3 % (0-2.0); EOS % 1.9 % (0-4.5); HEMATOCRIT 34.8 % (32.4-45.2); HEMOGLOBIN 11.9 GM/dL (10.7-15.3); LYMPH % 28.9 % (8-40); MCH 29.1 pg (25.7-33.7); MCHC 34.3 g/dl (32.0-36.0); MEAN PLT VOLUME 8.5 fl (7.5-11.1); MONO % 6.3 % (3.8-10.2); NEUT % 62.6 % (42.8-82.8); PLATELET COUNT 245 K/MM3 (134-434); RBC 4.09 M/mm3 (3.60-5.2); RDW 14.9 % (11.6-15.6); WHITE BLOOD COUNT 10.6 K/mm3 (4.0-10.0)
[2018-06-16] MEDS ORDERED: INSULIN (LEVEMIR) 100 UNITS/ML UNITS SQ ONE (07:48)
[2018-06-16 07:59] LABS: ANION GAP 6 MMOL/L (8-16); BLOOD UREA NITROGEN 4 mg/dL (7-18); CALCIUM 8.8 mg/dL (8.5-10.1); CHLORIDE 103 mmol/L (98-107); CO2 27 mmol/L (21-32); CREATININE 0.6 mg/dL (0.55-1.3); GLUCOSE,RANDOM 224 mg/dL (74-106); MAGNESIUM 2.1 mg/dL (1.8-2.4); PHOSPHOROUS 3.1 mg/dL (2.5-4.9); SODIUM 137 mmol/L (136-145)
--- NOTE | 2018-06-16 08:21 | PN ---
Teaching Attending Note Name of Resident: David Caldera ATTENDING PHYSICIAN STATEMENT I saw and evaluated the patient. I reviewed the resident's note and discussed the case with the resident. I agree with the resident's findings and plan as documented. SUBJECTIVE: Patient feels improved denies any SOB tolerating PO OBJECTIVE: Vital Signs Temperature 97.2 F L 06/16/18 09:30 Pulse Rate 71 06/16/18 08:30 Respiratory Rate 20 06/16/18 08:30 Blood Pressure 123/68 06/16/18 08:30 O2 Sat by Pulse Oximetry (%) 97 06/15/18 21:00 Middle F not in distress denies any pain able to tolerate PO solid food HEENT: B/L tonsilar enlargement Mm moist, no anemia, PERRLA EOMI NECK:No JVd No Bruit CHEST:CTA B/L CVS:S1S2 R no m/g/r ABD:No distention, non tender Bs EXT:No edema feet, no calf tenderness HEALTH INFORMATICS SPECIALIST:AOx3 non focal LABS: CBC, BMP 06/16/18 06:39 06/16/18 06:39 Active Medications Acetaminophen (Tylenol -) 650 mg PO Q6H PRN PRN Reason: FEVER Last Admin: 06/16/18 03:35 Dose: 650 mg Albuterol/Ipratropium (Duoneb -) 1 amp NEB Q6H PRN on: SHORTNESS OF BREATH Last Admin: 06/15/18 06:41 Dose: 1 amp Aspirin (Asa -) 81 mg PO DAILY [facility] Last Admin: 06/15/18 10:17 Dose: 81 mg Atorvastatin Calcium (Lipitor -) 40 mg PO HS [facility] Last Admin: 06/15/18 21:50 Dose: 40 mg Benzocaine/Menthol (Cepacol Lozenge -) 2 each MM PRN PRN PRN Reason: SORE THROAT Last Admin: 06/15/18 01:24 Dose: 2 each Guaifenesin (Robitussin -) 10 ml PO Q8H PRN PRN Reason: COUGH Last Admin: 06/15/18 21:53 Dose: 10 ml Ceftriaxone Sodium 1 gm/ (Dextrose) 50 mls @ 100 mls/hr IVPB DAILY [facility]; Protocol Last Admin: 06/15/18 10:17 Dose: 100 mls/hr Sodium Chloride (Normal Saline -) 1,000 mls @ 75 mls/hr IV ASDIR [facility] Last Admin: 06/15/18 16:52 Dose: 75 mls/hr Insulin Aspart (Novolog Vial Sliding Scale -) 1 vial SQ ACHS [facility]; Protocol Last Admin: 06/16/18 07:06 Dose: 4 unit Lidocaine/Aluminum/Magnesium/Simeth (Magic Mouthwash *Sjr Formula* -) 5 ml MM Q6HPO [facility] Last Admin: 06/16/18 06:05 Dose: Not Given Nystatin (Nystatin Oral Suspension -) 500,000 units PO Q6HPO [facility] Last Admin: 06/16/18 07:06 Dose: 500,000 units Ondansetron HCl (Zofran Injection) 4 mg IVPB Q6H PRN PRN Reason: NAUSEA ASSESSMENT AND PLAN: 53 yrs old F multiple medical co-morbidities including T2DM, HTN, dyslipedemia, CHF present with 3 days H/O nausea, vomiting, fever chills and throat pain with elevated, sepsis with TWBC 30 K Left shift w/u shows + Strept throat and follicular tonsillitis responded to IV Ceftriaxone now tolerating PO , normal consistency diet TWBC trended normal: Impression acute Follicular tonsillitis wit nausea vomiting and diarrhea; Symptoms resolved can be Dc Home on PO augmentin for 7 days. Problem List - Problems (1) Acute follicular tonsillitis Code(s): J03.90 - ACUTE TONSILLITIS, UNSPECIFIED (2) Gastroenteritis Code(s): K52.9 - NONINFECTIVE GASTROENTERITIS AND COLITIS, UNSPECIFIED (3) CAD (coronary artery disease) Code(s): I25.10 - ATHSCL HEART DISEASE OF [place] CORONARY ARTERY W/O ANG PCTRS (4) COPD (chronic obstructive pulmonary disease) Code(s): J44.9 - CHRONIC OBSTRUCTIVE PULMONARY DISEASE, UNSPECIFIED Qualifiers: COPD type: unspecified COPD Qualified Code(s): J44.9 - Chronic obstructive pulmonary disease, unspecified (5) CHF (congestive heart failure) Code(s): I50.9 - HEART FAILURE, UNSPECIFIED Qualifiers: Heart failure type: unspecified Heart failure chronicity: chronic Qualified Code(s): I50.9 - Heart failure, unspecified (6) Dehydration Code(s): E86.0 - DEHYDRATION (7) Diabetes mellitus Code(s): E11.9 - TYPE 2 DIABETES MELLITUS WITHOUT COMPLICATIONS Qualifiers: Diabetes mellitus type: type 2 Diabetes mellitus intermodal dispatcher insulin use: without intermodal dispatcher use Diabetes mellitus complication status: without complication Qualified Code(s): E11.9 - Type 2 diabetes mellitus without complications (8) Sepsis Code(s): A41.9 - SEPSIS, UNSPECIFIED ORGANISM
--- NOTE | 2018-06-16 08:49 | CONSULT ---
Consult - text type - Consultation Consultation Note: Neurology CHIEF COMPLAINT: fever, vomiting HISTORY OF PRESENT ILLNESS: 53 yo F, with PMH of HTN, CHF, CAD (with cardiac stents 4 years ago ), COPD, and DM, who presented with complaints of generalized body aches, sore throat, subjective fevers/chills ( in home 102F), NBNB vomiting and nausea, and loose stools x3 days. She has also had cough productive of "yellowish" sputum, which was different from her normal sputum. She Reported sore throat for 3 days. She has had mid-sternal chest pressure after coughing for the same time period, that has been unchanged. 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 SHe was admitted for further infectious mgmt, presumed strep pharyingitis. I was consulted to evaluate tremor, she reports the symptom has improved and on exam no tremor visible. She did complete CT head this AM, reviewed images, awaiting official report. Recent Travel: no PAST MEDICAL HISTORY: as above PAST SURGICAL HISTORY: gastro jejunostomy for ulcer Social History: Smokin-4 cigs a day Alcohol:no Drugs: no Family History: not relevent Allergies No Known Allergies Allergy (Verified 03/31/16 14:16) HOME MEDICATIONS: Home Medications Medication Instructions Recorded Amlodipine Besylate [Norvasc -] 10 mg PO DAILY 01/07/16 Canagliflozin [Invokana] 100 mg PO DAILY 01/07/16 Glimepiride [Amaryl -] 4 mg PO DAILY 03/31/16 REVIEW OF SYSTEMS CONSTITUTIONAL: Absent: fever, chills, diaphoresis, generalized weakness, malaise, loss of appetite, weight change HEENT: Absent: rhinorrhea, nasal congestion, throat pain, throat swelling, difficulty swallowing, mouth swelling, ear pain, eye pain, visual changes CARDIOVASCULAR: Absent: chest pain, syncope, palpitations, irregular heart rate, lightheadedness , peripheral edema RESPIRATORY: Absent: cough, shortness of breath, dyspnea with exertion, orthopnea, wheezing, stridor, hemoptysis GASTROINTESTINAL: Absent: abdominal pain, abdominal distension, nausea, vomiting, diarrhea, constipation, melena, hematochezia GENITOURINARY: Absent: dysuria, frequency, urgency, hesitancy, hematuria, flank pain, genital pain MUSCULOSKELETAL: Absent: myalgia, arthralgia, joint swelling, back pain, neck pain SKIN: Absent: rash, itching, pallor HEMATOLOGIC/IMMUNOLOGIC: Absent: easy bleeding, easy bruising, lymphadenopathy, frequent infections ENDOCRINE: Absent: unexplained weight gain, unexplained weight loss, heat intolerance, cold intolerance NEUROLOGIC: Absent: headache, focal weakness or paresthesias, dizziness, unsteady gait, seizure, mental status changes, bladder or bowel incontinence PSYCHIATRIC: Absent: anxiety, depression, suicidal or homicidal ideation, hallucinations. PHYSICAL EXAMINATION Vital Signs Temperature 98.0 F 06/16/18 06:00 Pulse Rate 80 06/16/18 06:00 Respiratory Rate 20 06/16/18 06:00 Blood Pressure 147/76 06/16/18 06:00 O2 Sat by Pulse Oximetry (%) 97 06/15/18 21:00 GENERAL: Awake, alert, and fully oriented, \\ HEAD: Normal with no signs of trauma. EYES: Pupils equal, round and reactive to light, \\ EARS, NOSE, THROAT: Ears normal, nares patent, dry mucus membrane, exudate present on tonsils , no posterior pharyngeal wall bulging NECK: Normal range of motion, supple without lymphadenopathy, JVD, or masses. LUNGS: Breath sounds equal, clear to auscultation bilaterally. No wheezes, and no crackles. No accessory muscle use. HEART: Tachycardia Regular rate and rhythm, normal S1 and S2 without murmur, rub or gallop. ABDOMEN: Soft, nontender, not distended, normoactive bowel sounds, no guarding, no rebound, no masses. mid line scar UPPER EXTREMITIES: 2+ pulses, warm, well-perfused. No cyanosis. No clubbing. No peripheral edema. LOWER EXTREMITIES: 2+ pulses, warm, well-perfused. No calf tenderness. No peripheral edema. NEUROLOGICAL: Normal speech. Normal gait. PSYCHIATRIC: Cooperative. Good eye contact. Appropriate mood and affect. SKIN: Warm, dry, Laboratory Results - last 24 hr 06/14/18 06/14/18 06/14/18 12:28 12:28 13:01 WBC 19.2 H RBC 4.66 Hgb 13.9 Hct 39.5 D MCV 84.8 MCH 29.8 D MCHC 35.2 RDW 14.8 D Plt Count 253 D MPV 8.4 D Absolute Neuts (auto) 15.5 H Neutrophils % 81.1 D Lymphocytes % 13.3 Monocytes % 5.0 Eosinophils % 0.0 D Basophils % 0.6 Nucleated RBC % 0 Sodium Potassium Chloride Carbon Dioxide Anion Gap BUN Creatinine Creat Clearance w eGFR Random Glucose Lactic Acid Calcium Total Bilirubin AST ALT Alkaline Phosphatase Creatine Kinase Troponin I Total Protein Albumin Influenza A (Rapid) Negative Influenza B (Rapid) Negative Group A Strep Rapid Positive 06/14/18 06/14/18 13:01 14:23 WBC RBC Hgb Hct MCV MCH MCHC RDW Plt Count MPV Absolute Neuts (auto) Neutrophils % Lymphocytes % Monocytes % Eosinophils % Basophils % Nucleated RBC % Sodium 133 L Potassium 3.8 Chloride 99 Carbon Dioxide 22 Anion Gap 11 BUN 7 Creatinine 0.7 Creat Clearance w eGFR > 60 Random Glucose 234 H Lactic Acid 1.8 Calcium 9.1 Total Bilirubin 0.4 AST 17 ALT 25 Alkaline Phosphatase 128 H Creatine Kinase 34 Troponin I < 0.02 Total Protein 7.0 Albumin 3.6 Influenza A (Rapid) Influenza B (Rapid) Group A Strep Rapid ASSESSMENT/PLAN: 53 yo F, with PMH of HTN, CHF, CAD (with cardiac stents 4 years ago ), COPD, and DM, who presented with complaints of generalized body aches, sore throat, subjective fevers/chills ( in home 102F), NBNB vomiting and nausea, and loose stools x3 days. She has also had cough productive of "yellowish" sputum, which was different from her normal sputum. She Reported sore throat for 3 days. She has had mid-sternal chest pressure after coughing for the same time period, that has been unchanged. 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 SHe was admitted for further infectious mgmt, presumed strep pharyingitis. I was consulted to evaluate tremor, she reports the symptom has improved and on exam no tremor visible. She did complete CT head this AM, reviewed images, awaiting official report. Follow up radiology read. Abx as per primary team, continue infectious mgmt, possible just chills/rigors previously, which improved. Would not add any neuropathic medication at this time. Monitor blood pressure, maintain normotensive range. Monitor glucose, maintain euglycemic range.
[2018-06-16 09:41] VITALS: BP 123/68; PULSE 71
[2018-06-16] MEDS: SODIUM CHLORIDE 1,000 ML IV SCH (10:42)
[2018-06-16 10:46] VITALS: TEMP 97.2
[2018-06-16] MEDS ORDERED: DEXTROSE 5%-WATER - 50 ML IVPB ONE (11:42)
[2018-06-16] MEDS ORDERED: cefTRIAXone SODIUM 1 GM VIAL ONE (11:42)
[2018-06-16] MEDS: ASPIRIN 81 MG CHEWABLE TABLETS PO SCH (11:44)
[2018-06-16] MEDS: CEFTRIAXONE 1 GM in DEXTROSE 5%-WATER - 50 ML IVPB SCH (11:44)
--- NOTE | 2018-06-16 12:20 | DS ---
Physical Exam: SUBJECTIVE: Patient seen and examined no new course overnight able to eat food and swallow liquid without difficulty No more diarrhoea and vomiting OBJECTIVE: Vital Signs Period Temp Pulse Resp BP Sys/Shetty Pulse Ox Last 24 Hr 97.2 F-98.0 F 71-100 18-20 112-149/54-76 97 PHYSICAL EXAM GENERAL: Awake, alert, and fully oriented, HEAD: Normal with no signs of trauma. EARS, NOSE, THROAT: follicular exudates on tonsils LUNGS: Breath sounds equal, clear to auscultation bilaterally. No wheezes, and no crackles. No accessory muscle use. HEART: Tachycardia Regular rate and rhythm, normal S1 and S2 without murmur, rub or gallop. ABDOMEN: Soft, nontender, not distended, normoactive bowel sounds, no guarding, no rebound, no masses. mid line scar UPPER EXTREMITIES: 2+ pulses, warm, well-perfused. No cyanosis. No clubbing. No peripheral edema. LOWER EXTREMITIES: warm, well-perfused. No calf tenderness. No peripheral edema. NEUROLOGICAL: Normal speech. Normal gait. PSYCHIATRIC: Cooperative. Good eye contact. Appropriate mood and affect. SKIN: Warm, dry, LABS Laboratory Results - last 24 hr 06/14/18 06/15/18 06/15/18 18:20 17:35 21:54 WBC RBC Hgb Hct MCV MCH MCHC RDW Plt Count MPV Absolute Neuts (auto) Neutrophils % Lymphocytes % Monocytes % Eosinophils % Basophils % Nucleated RBC % Sodium Potassium Chloride Carbon Dioxide Anion Gap BUN Creatinine Creat Clearance w eGFR POC Glucometer 243 386 Random Glucose Calcium Phosphorus Magnesium Stool O & P Wet [place] Hepatitis A IgM Ab Negative Hep Bs Antigen Negative Hep B Core IgM Ab Negative Hepatitis C Antibody <0.1 O & P Permanent Slide Fungal Cult Result 2 06/15/18 06/16/18 06/16/18 22:30 06:39 06:39 WBC 10.6 H RBC 4.09 Hgb 11.9 Hct 34.8 MCV 85.0 MCH 29.1 MCHC 34.3 RDW 14.9 Plt Count 245 MPV 8.5 Absolute Neuts (auto) 6.6 Neutrophils % 62.6 Lymphocytes % 28.9 D Monocytes % 6.3 Eosinophils % 1.9 D Basophils % 0.3 Nucleated RBC % 0 Sodium 137 Potassium 4.0 Chloride 103 Carbon Dioxide 27 Anion Gap 6 L BUN 4 L Creatinine 0.6 Creat Clearance w eGFR > 60 POC Glucometer Random Glucose 224 H Calcium 8.8 Phosphorus 3.1 Magnesium 2.1 Stool O & P Wet [place] Cancelled Hepatitis A IgM Ab Hep Bs Antigen Hep B Core IgM Ab Hepatitis C Antibody O & P Permanent Slide Cancelled Fungal Cult Result 2 Cancelled 06/16/18 06/16/18 06/16/18 06:55 09:24 11:51 WBC RBC Hgb Hct MCV MCH MCHC RDW Plt Count MPV Absolute Neuts (auto) Neutrophils % Lymphocytes % Monocytes % Eosinophils % Basophils % Nucleated RBC % Sodium Potassium Chloride Carbon Dioxide Anion Gap BUN Creatinine Creat Clearance w eGFR POC Glucometer 240 319 273 Random Glucose Calcium Phosphorus Magnesium Stool O & P Wet [place] Hepatitis A IgM Ab Hep Bs Antigen Hep B Core IgM Ab Hepatitis C Antibody O & P Permanent Slide Fungal Cult Result 2 HOSPITAL COURSE: Pt is a 53 yo F, with PMH of HTN, CHF, CAD (with cardiac stents 4 years ago ), COPD, and DM, who is presenting with complaints of generalized body aches, sore throat, subjective fevers/chills ( in home 102F), NBNB vomiting and nausea, and loose stools x3 days. She has also had cough productive of "yellowish" sputum, which is different from her normal sputum. Reports sore throat from 3 days. She has had mid-sternal chest pressure after coughing for the same time period, that has been unchanged. 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 Denies trouble in swallowing, breathing , change in voice, discharge from ear. Denies post nasal drip. Also repors vomiting and diarrhoea from 3 days, no blood, watery diarrhoea. denies pain in belly. statets she is unable to keep anything in. Also reports decrease in urine output. In hospital pt was started on IV antibiotics ceftriaxone and got IV antibiotics for 3 days. WBC decreased from 19 to 10. Pt is afebrile, throat pain improved, no more vomiting and diarrhoea. Pt is accepting orally. Pt is dc home on augmentin bid for 7 days. Date of Admission:06/14/18 Date of Discharge: 06/16/18 Minutes to complete discharge: 45 Discharge Summary Reason For Visit: DIABETIC MELLITUS, CHF, PHARYNGITIS DUE TO STREP Current Active Problems CAD (coronary artery disease) (Acute) CHF (congestive heart failure) (Acute) COPD (chronic obstructive pulmonary disease) (Acute) Dehydration (Acute) Diabetes mellitus (Acute) Gastroenteritis (Acute) Sepsis (Acute) Strep pharyngitis (Acute) Tobacco abuse (Acute) Condition: Stable - Instructions Diet, Activity, Other Instructions: Take augmentin one tablet twice a day Do gargles with luke warm water. Take tylenol for fever and pain Use over the counter lozenges for sore throat. Drink plenty of liquid. If you develop fever, or sore throat gets worse, trouble in breathing, chest pain or any other new symptom then call doctor or go to hospital. Disposition: HOME - Home Medications Comprehensive Discharge Medication List: Ambulatory Orders Amlodipine Besylate [Norvasc -] 10 mg PO DAILY 01/07/16 Canagliflozin [Invokana] 100 mg PO DAILY 01/07/16 Glimepiride [Amaryl -] 4 mg PO DAILY 03/31/16 Acetaminophen [Tylenol .Regular Strength -] 650 mg PO Q6H PRN tablet 06/16/18 Amoxicillin/Potassium Clav [Augmentin 875-125 Tablet] 1 each PO BID #14 tablet 06/16/18 This patient is new to me today: No Emergency Visit: Yes ED Registration Date: 06/14/18 Care time: The patient presented to the Emergency Department on the above date and was hospitalized for further evaluation of their emergent condition. Critical Care patient: No - Discharge Referral Referred to [facility] No
== END 2018-06-16 14:36 | disposition home or self-care (01) | DRG 872 ==
LOC: JER 09:53 → JERBED 14:26 → J5S 23:29
PROVIDERS: ADMIT Internal Medicine; ATTEND Internal Medicine
DX: A41.9 Sepsis, unspecified organism (principal); J02.0 Streptococcal pharyngitis; J03.90 Acute tonsillitis, unspecified; I25.10 Atherosclerotic heart disease of native coronary artery without angina pectoris; J44.9 Chronic obstructive pulmonary disease, unspecified; E11.9 Type 2 diabetes mellitus without complications; F17.210 Nicotine dependence, cigarettes, uncomplicated; K52.9 Noninfective gastroenteritis and colitis, unspecified; E86.0 Dehydration; I11.0 Hypertensive heart disease with heart failure; R25.1 Tremor, unspecified; D72.829 Elevated white blood cell count, unspecified; Z95.5 Presence of coronary angioplasty implant and graft
CPT/HCPCS: 36415; 70450-TC; 71046-TC-FY; 80048; 80053; 80074; 81003; 82550; 82962; 83605; 83735; 84100; 84484; 85025; 87040; 87045; 87046; 87086; 87177; 87205; 87209; 87324; 87389; 87449; 87804; 87880; 93005; 93010; 94010; 94640; 97116-GP; 97161-GP; 99283-25; J0131; J7030

== ENCOUNTER 2019-01-11 18:13 | Emergency (ER) | payer OTHER ==
--- NOTE | 2019-01-11 18:16 | PDOC ---
Rapid Medical Evaluation Chief Complaint: Respiratory Time Seen by Provider: 01/11/19 18:15 Medical Evaluation: Allergies Allergy/AdvReac Type Severity Reaction Status Date / Time No Known Allergies Allergy Verified 03/31/16 14:16 01/11/19 18:15 HPI: Cough x5 days no fevers PE: No distress ORDERS: Nothing Discharge Disposition - Diagnosis Viral URI with cough - Referrals - Patient Instructions - Post Discharge Activity
[2019-01-11 18:17] VITALS: BP 165/92; PULSE 99; TEMP 98.4; BMI 26.5
--- NOTE | 2019-01-11 18:52 | PDOC ---
History of Present Illness - General Chief Complaint: Respiratory Stated Complaint: COLD SYMPTOMS Time Seen by Provider: 01/11/19 18:15 History Source: Patient Exam Limitations: Clinical Condition - History of Present Illness Initial Comments: 01/11/19 18:51 Patient with history of hypertension on Norvasc, diabetes and cardiomyopathy present with complaint of one-week history of persistent dry cough with intermittent wheezing and body aches. Patient is a current every day smoker. Denies fever, chills, shortness of breath, dizziness, chest pain, nausea or vomiting. Patient presented requesting antibiotic treatment as she feels she needs antibiotics for Her cough. Denies any other symptoms Is this a multiple visit Asthma Patient?: No Timing/Duration: 1 week Past History - Past Medical History Allergies/Adverse Reactions: Allergies Allergy/AdvReac Type Severity Reaction Status Date / Time No Known Allergies Allergy Verified 01/11/19 18:17 Home Medications: Ambulatory Orders Canagliflozin [Invokana] 100 mg PO DAILY 01/07/16 Glimepiride [Amaryl -] 4 mg PO DAILY 03/31/16 Acetaminophen [Tylenol .Regular Strength -] 650 mg PO Q6H PRN tablet 06/16/18 Amoxicillin/Potassium Clav [Augmentin 875-125 Tablet] 1 each PO BID #14 tablet 06/16/18 Amlodipine Besylate [Norvasc -] 10 mg PO DAILY 30 Days #30 tablet 01/11/19 Benzonatate [Tessalon Pearls -] 100 mg PO TID PRN #21 capsule 01/11/19 Methylprednisolone [Medrol Dose Dash] 4 mg PO ASDIR #21 tablet 01/11/19 Anemia: No Asthma: No Cancer: No Cardiac Disorders: Yes (CHF) CVA: No COPD: Yes CHF: Yes (stents) Dementia: No Diabetes: Yes GI Disorders: (ulcer) Disorders: No HTN: Yes (non compliant with meds x 2 weeks) Hypercholesterolemia: No Liver Disease: No Seizures: No Thyroid Disease: No - Surgical History Abdominal Surgery: No Appendectomy: No Cardiac Surgery: Yes (STENTS) Cholecystectomy: No Lung Surgery: No Neurologic Surgery: No Orthopedic Surgery: No - Immunization History Immunization Up to Date: No - Suicide/Smoking/Psychosocial Hx Smoking Status: Yes Smoking History: Current every day smoker Have you smoked in the past 12 months: Yes Number of Cigarettes Smoked Daily: 3 Information on smoking cessation initiated: No 'Breaking Loose' booklet given: 06/15/18 Hx Alcohol Use: No Drug/Substance Use Hx: No Substance Use Type: None Hx Substance Use Treatment: No Review of Systems - Review of Systems Able to Perform ROS?: Yes Is the patient limited Faroese proficient: No Constitutional: Yes: Malaise. No: Chills, Fever HEENTM: No: Symptoms Reported, See HPI, Eye Pain, Blurred Vision, Tearing, Recent change in vision, Double Vision, Cataracts, Ear Pain, Ocular Prothesis, Ear Discharge, Nose Pain, Nose Congestion, Tinnitus, Nose Bleeding, Hearing Loss , Throat Pain, Throat Swelling, Mouth Pain, Dental Problems, Difficulty Swallowing, Mouth Swelling, Other Respiratory: Yes: Symptoms reported, See HPI, Cough, Wheezing. No: Orthopnea, Shortness of Breath, SOB with Exertion, SOB at Rest, Stridor, Productive cough, Hemoptysis, Other Cardiac (ROS): No: Symptoms Reported, See HPI, Chest Pain, Edema, Irregular Heart Rate, Lightheadedness, Palpitations, Syncope, Chest Tightness, Other ABD/GI: No: Nausea, Vomiting Integumentary: No: Symptoms Reported All Other Systems: Reviewed and Negative *Physical Exam - Vital Signs Last Vital Signs Temp Pulse Resp BP Pulse Ox 98.4 F 99 H 18 165/92 96 01/11/19 18:14 01/11/19 18:14 01/11/19 18:14 01/11/19 18:14 01/11/19 18:14 - Physical Exam Comments: 01/11/19 18:47 GENERAL: Well developed, well nourished. Awake and alert. No acute distress. HEENT: Normocephalic, atraumatic. PERRLA, EOMI. No conjunctival pallor. Sclera are non-icteric. Moist mucous membranes. Oropharynx is clear. NECK: Supple. Full ROM. CARDIOVASCULAR: Regular rate and rhythm. No murmurs, rubs, or gallops. Distal pulses are 2+ and symmetric. PULMONARY: No evidence of respiratory distress. Moderate diffuse wheezing. No rales or rhonchi. MUSCULOSKELETAL Normal range of motion at all joints. EXTREMITIES: No cyanosis. No clubbing. No edema. SKIN: Warm and dry. Normal capillary refill. No rashes. No jaundice. NEUROLOGICAL: Alert, awake, appropriate. Gait is normal without ataxia. PSYCHIATRIC: Cooperative. Good eye contact. Appropriate mood General Appearance: Yes: Nourished, Appropriately Dressed. No: Apparent Distress ED Treatment Course - RADIOLOGY Radiology Studies Ordered: Category Date Time Status CHEST PA & LAT [RAD] Stat Radiology 01/11/19 18:45 Ordered Medical Decision Making - Medical Decision Making 01/11/19 18:52 Patient with history of hypertension on Norvasc, diabetes and cardiomyopathy present with complaint of one-week history of persistent dry cough with intermittent wheezing and body aches. Patient is a current every day smoker. Denies fever, chills, shortness of breath, dizziness, chest pain, nausea or vomiting. Patient presented requesting antibiotic treatment as she feels she needs antibiotics for Her cough. Denies any other symptoms Exam significant for diffuse wheezing with no acute respiratory distress. Patient afebrile. Symptoms likely bronchitis versus viral URI versus less likely pneumonia. Chest x-ray ordered to rule out pneumonia 01/11/19 18:54 Patient with elevated BPs by patient reported has not been taking her blood pressure medication for week now to running out of her medication and has not seen her PCP to refill medication 01/11/19 19:09 Chest x-ray shows no acute infiltrate or pneumonia. Glucose fingerstick showed shows 265 nonfasting. Patient symptoms likely viral URI and stable for outpatient management on Tessalon Perles when necessary for cough and medrol- dash for wheezing. Discussed with patient importance of compliance with home medication and advised to check fingerstick at home and follow-up with primary care. Patient voice understanding will follow-up with fingerstick as instructed and follow-up with primary care *DC/Admit/Observation/Transfer Diagnosis at time of Disposition: Viral URI with cough, Essential hypertension, Tobacco abuse Diabetes mellitus Qualifiers: Diabetes mellitus type: type 2 Diabetes mellitus correction insulin use: without correction use Diabetes mellitus complication status: without complication Qualified Code(s): E11.9 - Type 2 diabetes mellitus without complications - Discharge Dispostion Disposition: HOME Condition at time of disposition: Stable Decision to Admit order: No - Prescriptions Prescriptions: Amlodipine Besylate [Norvasc -] 10 mg PO DAILY 30 Days #30 tablet Benzonatate [Tessalon Pearls -] 100 mg PO TID PRN #21 capsule PRN Reason: Cough Methylprednisolone [Medrol Dose Dash] 4 mg PO ASDIR #21 tablet - Referrals Referrals: Ilsa Cruz DO [Primary Care Provider] - - Patient Instructions Printed Discharge Instructions: DI for Viral Upper Respiratory Infection -- Adult Additional Instructions: Take prescribed medication as prescribed. Increase fluid intake. Follow-up referred head packager if symptoms persist for moderate 4 days. Make a follow- up appointment with your primary care for more refill of blood pressure medications - Post Discharge Activity
== END 2019-01-11 19:10 | disposition home or self-care (01) ==
LOC: JERFT 18:13
DX: J06.9 Acute upper respiratory infection, unspecified (principal); B97.89 Other viral agents as the cause of diseases classified elsewhere; I25.10 Atherosclerotic heart disease of native coronary artery without angina pectoris; I11.0 Hypertensive heart disease with heart failure; F17.210 Nicotine dependence, cigarettes, uncomplicated; Z95.5 Presence of coronary angioplasty implant and graft; E11.9 Type 2 diabetes mellitus without complications; Z79.84 Long term (current) use of oral hypoglycemic drugs; Z87.19 Personal history of other diseases of the digestive system
CPT/HCPCS: 71046-TC-FY; 82962; 99281-25

== ENCOUNTER 2021-02-25 17:45 | Emergency (ER) | payer OTHER ==
[2021-02-25 18:58] VITALS: TEMP 98.4; BMI 25.2
[2021-02-25] MEDS ORDERED: ACETAMINOPHEN 1000 MG/100 ML VIAL IVPB ONE (22:22)
[2021-02-25] MEDS ORDERED: ACETAMINOPHEN INJECTION 100 ML IVPB ONE (22:32)
[2021-02-25 22:53] LABS: HEMATOCRIT 36.1 % (32.4-45.2); HEMOGLOBIN 12.7 GM/dL (10.7-15.3); MCH 30.2 pg (25.7-33.7); MEAN CELL VOLUME 86.2 fl (80-96); MEAN PLT VOLUME 7.5 fl (7.5-11.1); PLATELET COUNT 306 10^3/uL (134-434); RBC 4.19 M/mm3 (3.60-5.2); RDW 12.5 % (11.6-15.6); WHITE BLOOD COUNT 18.6 K/mm3 (4.0-10.0)
[2021-02-25 23:12] LABS: CHLORIDE 102 mmol/L (98-107); SODIUM 138 mmol/L (136-145)
[2021-02-25 23:14] LABS: CALCIUM 9.6 mg/dL (8.5-10.1)
[2021-02-25 23:15] LABS: ALBUMIN 2.9 g/dl (3.4-5.0); ANION GAP 7 MMOL/L (8-16); BLOOD UREA NITROGEN 8.2 mg/dL (7-18); CO2 29 mmol/L (21-32); GLUCOSE,RANDOM 230 mg/dL (74-106); LIPASE 43 U/L (73-393); MAGNESIUM 1.8 mg/dL (1.8-2.4)
[2021-02-25 23:16] LABS: ANISOCYTOSIS 1+; MACROCYTOSIS 0; PLATELET ESTIMATE NORMAL; TARGET CELLS 1+
[2021-02-25 23:18] LABS: CREATININE 0.5 mg/dL (0.55-1.3); SGOT/AST 129 U/L (15-37); SGPT/ALT 243 U/L (13-61)
[2021-02-25 23:19] LABS: BILIRUBIN,TOTAL 0.8 mg/dL (0.2-1)
[2021-02-25 23:20] LABS: TOT PROT 5.9 g/dl (6.4-8.2)
[2021-02-25 23:21] LABS: ALK PHOS 237 U/L (45-117)
[2021-02-26] MEDS ORDERED: CEFEPIME HCL/D5W 2 GM/50 ML BAG IVPB ONE (00:51)
[2021-02-26] MEDS ORDERED: SODIUM CHLORIDE 0.9% 500 ML INFUS.BAG IV ONE (00:57)
[2021-02-26 01:02] LABS: URINE APPEARANCE CLEAR; URINE BILIRUBIN NEGATIVE (NEGATIVE); URINE COLOR YELLOW; URINE GLUCOSE (UA) 3+ (NEGATIVE); URINE KETONE 3+ (NEGATIVE); URINE LEUK ESTERASE NEGATIVE (NEGATIVE); URINE NITRITE NEGATIVE (NEGATIVE); URINE PROTEIN TRACE (NEGATIVE)
[2021-02-26] MEDS ORDERED: CEFEPIME 2 GM/100 ML BAG IVPB ONE (01:09)
[2021-02-26] MEDS ORDERED: morphine CARPU-JECT 2 MG/1 ML DISP.SYRIN IVPUSH ONE ×2 (01:09→01:57)
[2021-02-26] MEDS ORDERED: morphine SULFATE 4 MG/ML VIAL ONE ×2 (01:27→02:27)
[2021-02-26 01:50] LABS: VENOUS BASE EXCESS 3.3 mmol/L (-2-2); VENOUS O2 SATURATION 83.2 % (70-80); VENOUS PCO2 40.9 mmHg (38-52); VENOUS PH 7.447 (7.310-7.410)
[2021-02-26 02:22] VITALS: BP 118/74
[2021-02-26 02:40] VITALS: PULSE 123
== END 2021-02-26 02:50 | disposition short-term general hospital (02) ==
LOC: JER 17:45
PROC: 3E03329 Introduction of Other Anti-infective into Peripheral Vein, Percutaneous Approach (ICD-10-PCS; principal; 2021-02-25)
PROC: 3E033NZ Introduction of Analgesics, Hypnotics, Sedatives into Peripheral Vein, Percutaneous Approach (ICD-10-PCS; 2021-02-26)
PROC: 3E033GC Introduction of Other Therapeutic Substance into Peripheral Vein, Percutaneous Approach (ICD-10-PCS; 2021-02-26)
DX: K66.8 Other specified disorders of peritoneum (principal); R10.9 Unspecified abdominal pain
CPT/HCPCS: 36415; 74177-TC; 80053; 81003; 82803; 83605; 83690; 83735; 84484; 85025; 87040; 87086; 93005; 93010; 99291; J0131

== ENCOUNTER 2023-04-09 21:08 | Inpatient (IN) | payer OTHER ==
[2023-04-09] MEDS ORDERED: ONDANSETRON 4 MG/2 ML VIAL IVPUSH ONE (21:39)
[2023-04-09] MEDS ORDERED: SODIUM CHLORIDE 0.9% 500 ML INFUS.BAG IV ONE (21:41)
[2023-04-09] MEDS ORDERED: ONDANSETRON 4 MG/2 ML VIAL ONE (22:13)
[2023-04-09] MEDS ORDERED: FENTANYL CITRATE/PF 50 MCG/ML VIAL ONE (22:13)
[2023-04-09 22:16] LABS: BASO % 0.4 % (0-2.0); EOS % 0.1 % (0-4.5); HEMATOCRIT 35.8 % (32.4-45.2); HEMOGLOBIN 11.1 GM/dL (10.7-15.3); MCH 23.7 pg (25.7-33.7); MCHC 31.1 g/dl (32.0-36.0); MEAN CELL VOLUME 76.2 fl (80-96); MEAN PLT VOLUME 7.5 fl (7.5-11.1); MONO % 6.5 % (3.8-10.2); PLATELET COUNT 604 10^3/uL (134-434); RBC 4.71 M/mm3 (3.60-5.2); RDW 18.1 % (11.6-15.6); WHITE BLOOD COUNT 15.6 K/mm3 (4.0-10.0)
[2023-04-09 22:34] LABS: CHLORIDE 99 mmol/L (98-107); POTASSIUM 4.6 mmol/L (3.5-5.1); SODIUM 137 mmol/L (136-145)
[2023-04-09 22:38] LABS: ALBUMIN 3.5 g/dl (3.4-5.0); ANION GAP 10 mmol/L (4-13); CO2 28 mmol/L (21-32); LIPASE 686 U/L (73-393)
[2023-04-09 22:41] LABS: CREATININE 1.3 mg/dL (0.55-1.3); SGOT/AST 32 U/L (15-37); SGPT/ALT 17 U/L (13-61)
[2023-04-09 22:42] LABS: BILIRUBIN,TOTAL 0.4 mg/dL (0.2-1)
[2023-04-09 22:44] LABS: ALK PHOS 81 U/L (45-117)
[2023-04-09 22:55] LABS: GLUCOSE,RANDOM 408 mg/dL (74-106)
[2023-04-09 23:50] LABS: LACTIC ACID 3.1 mmol/L (0.4-2.0)
[2023-04-10] MEDS ORDERED: PIPERACILLIN/TAZOB 4.5 GM 4.5 GM in DEXTROSE 5%-WATER 100 ML IVPB ONE (00:53)
[2023-04-10] MEDS ORDERED: LACTATED RINGERS SOLUTION 1000 ML INFUS.BAG IV ONE ×2 (00:54→01:48)
[2023-04-10] MEDS ORDERED: PIPERACILLIN/TAZOB 4.5 GM 4.5 GM/100 ML BAG IVPB ONE (01:05)
[2023-04-10] MEDS ORDERED: MUPIROCIN 2% TOPICAL OINTMENT FOR DECOLONIZATION NS SCH (01:45)
[2023-04-10] MEDS ORDERED: SUCCINYLCHOLINE CHLORIDE 200 MG/10 ML SYRINGE ONE (05:10)
[2023-04-10] MEDS ORDERED: PROPOFOL 20 ML ONE (05:10)
[2023-04-10] MEDS ORDERED: KETAMINE HCL 200 MG/20 ML VIAL ONE (05:10)
[2023-04-10] MEDS ORDERED: HYDROmorphone HCl 2 MG/ML VIAL ONE (05:10)
[2023-04-10] MEDS ORDERED: MIDAZOLAM HCL 2 MG/2 ML SINGLE DOSE VIAL ONE (05:12)
[2023-04-10] MEDS ORDERED: BUPIVACAINE HCL/PF 0.25% (2.5MG/ML) 10 ML VIAL ONE (05:25)
[2023-04-10] MEDS ORDERED: HEPARIN NA (PORCINE) 5,000 UNITS/ML 1ML VIAL ONE (05:49)
[2023-04-10] MEDS ORDERED: HEPARIN NA (PORCINE) 5,000 UNITS/ML 1ML VIAL SQ ONE (06:00)
[2023-04-10] MEDS ORDERED: PIPERACILLIN/TAZOB 3.375 GM 3.375 GM in DEXTROSE 5%-WATER - 50 ML IVPB ONE ×2 (07:00→09:15)
[2023-04-10] MEDS ORDERED: PIPERACILLIN/TAZOBACTAM 3.375 GM VIAL IVPB ONE (07:34)
[2023-04-10] MEDS ORDERED: GLYCOPYRROLATE 0.2 MG/1 ML VIAL ONE (08:10)
[2023-04-10] MEDS ORDERED: NEOSTIGMINE METHYLSULFATE 0.5 MG/1 ML - 10 ML MDV ONE (08:10)
[2023-04-10] MEDS ORDERED: ONDANSETRON 4 MG/2 ML VIAL IVPUSH PRN ×2 (08:44→09:03)
[2023-04-10] MEDS ORDERED: ACETAMINOPHEN 1000 MG/100 ML BAG IVPB ONE ×2 (08:45→09:03)
[2023-04-10] MEDS ORDERED: HYDROmorphone *PCA* 10MG/50ML DISP.SYRIN PCA SCH (08:45)
[2023-04-10] MEDS ORDERED: LACTATED RINGERS SOLUTION 1,000 ML IV SCH ×2 (08:45→09:03)
[2023-04-10] MEDS ORDERED: ACETAMINOPHEN INJECTION 100 ML IVPB ONE (09:23)
[2023-04-10] MEDS ORDERED: HYDROmorphone *PCA* 10MG/50ML DISP.SYRIN ONE (09:29)
[2023-04-10] MEDS ORDERED: PIPERACILLIN/TAZOB 3.375 GM 3.375 GM in DEXTROSE 5%-WATER - 50 ML IVPB SCH ×2 (10:00→18:00)
[2023-04-10 10:14] LABS: HEMOGLOBIN 9.2 GM/dL (10.7-15.3); MCH 23.3 pg (25.7-33.7); MCHC 30.6 g/dl (32.0-36.0); MEAN CELL VOLUME 76.3 fl (80-96); MEAN PLT VOLUME 7.6 fl (7.5-11.1); PLATELET COUNT 479 10^3/uL (134-434); RBC 3.93 M/mm3 (3.60-5.2); RDW 17.9 % (11.6-15.6); WHITE BLOOD COUNT 20.3 K/mm3 (4.0-10.0)
[2023-04-10] MEDS: HYDROmorphone *PCA* 10MG/50ML DISP.SYRIN PCA SCH (10:30)
[2023-04-10 10:39] LABS: ANISOCYTOSIS 0; MACROCYTOSIS 0
[2023-04-10] MEDS ORDERED: INSULIN ASPART SLIDING SCALE (NOVOLOG) 1 VIAL SQ SCH (11:00)
[2023-04-10 11:18] LABS: POTASSIUM 4.1 mmol/L (3.5-5.1)
[2023-04-10 11:19] LABS: BLOOD UREA NITROGEN 12.5 mg/dL (7-18)
[2023-04-10 11:22] LABS: CREATININE 0.8 mg/dL (0.55-1.3); MAGNESIUM 1.3 mg/dL (1.8-2.4)
[2023-04-10 11:23] LABS: PHOSPHOROUS 5.2 mg/dL (2.5-4.9)
[2023-04-10 11:24] LABS: BILIRUBIN,TOTAL 0.3 mg/dL (0.2-1)
[2023-04-10] MEDS: MUPIROCIN 2% TOPICAL OINTMENT FOR DECOLONIZATION NS SCH ×2 (11:27→21:36)
[2023-04-10 11:34] LABS: ALBUMIN 2.5 g/dl (3.4-5.0); CALCIUM 7.6 mg/dL (8.5-10.1); TOT PROT 4.8 g/dl (6.4-8.2)
[2023-04-10] MEDS: PANTOPRAZOLE SODIUM 40 MG VIAL IVPUSH SCH ×2 (12:33→21:34)
[2023-04-10] MEDS: INSULIN ASPART SLIDING SCALE (NOVOLOG) 1 VIAL SQ SCH ×3 (12:34→21:35)
[2023-04-10] MEDS ORDERED: INSULIN (NOVOLOG) ASPART 100 UNITS/ML 10ML VIAL ONE (12:35)
[2023-04-10] MEDS ORDERED: MAGNESIUM SULF 50% (8.12 MEQ/2 ML-1 GM VIAL) IVPB ONE (12:43)
[2023-04-10] MEDS: DEXTROSE 5%-LACTATED RINGERS 1,000 ML IV SCH (13:07)
[2023-04-10] MEDS ORDERED: SODIUM CHLORIDE 1,000 ML IV STA (14:25)
[2023-04-10] MEDS: LYTES/YERBA SANTA 240 ML BOTTLE MM SCH (17:07)
[2023-04-10] MEDS: PIPERACILLIN/TAZOB 3.375 GM 3.375 GM in DEXTROSE 5%-WATER - 50 ML IVPB SCH (18:19)
[2023-04-10] MEDS: CHLORHEXIDINE GLUCONATE 4% CLEANSER FOR DECOLONIZATION TP SCH (21:35)
[2023-04-10] MEDS ORDERED: CHLORHEXIDINE GLUCONATE 4% CLEANSER FOR DECOLONIZATION TP SCH (22:00)
[2023-04-11] MEDS: PIPERACILLIN/TAZOB 3.375 GM 3.375 GM in DEXTROSE 5%-WATER - 50 ML IVPB SCH ×3 (01:32→17:47)
[2023-04-11] MEDS: INSULIN ASPART SLIDING SCALE (NOVOLOG) 1 VIAL SQ SCH ×4 (07:15→21:21)
[2023-04-11 07:18] LABS: POTASSIUM 3.5 mmol/L (3.5-5.1)
[2023-04-11 07:26] LABS: BASO % 0.1 % (0-2.0); EOS % 0.2 % (0-4.5); HEMATOCRIT 24.9 % (32.4-45.2); HEMOGLOBIN 7.7 GM/dL (10.7-15.3); LYMPH % 11.1 % (8-40); MCH 23.4 pg (25.7-33.7); MEAN CELL VOLUME 75.4 fl (80-96); MEAN PLT VOLUME 7.7 fl (7.5-11.1); NEUT % 81.6 % (42.8-82.8); PLATELET COUNT 379 10^3/uL (134-434); RBC 3.31 M/mm3 (3.60-5.2); RDW 17.9 % (11.6-15.6); WHITE BLOOD COUNT 13.9 K/mm3 (4.0-10.0)
[2023-04-11 07:28] LABS: ALBUMIN 2.4 g/dl (3.4-5.0)
[2023-04-11 07:29] LABS: CALCIUM 7.9 mg/dL (8.5-10.1)
[2023-04-11 07:30] LABS: MAGNESIUM 2.1 mg/dL (1.8-2.4)
[2023-04-11 07:31] LABS: PHOSPHOROUS 2.6 mg/dL (2.5-4.9)
[2023-04-11 07:32] LABS: CREATININE 0.6 mg/dL (0.55-1.3)
[2023-04-11 07:33] LABS: BILIRUBIN,TOTAL 0.2 mg/dL (0.2-1)
[2023-04-11] MEDS: PANTOPRAZOLE SODIUM 40 MG VIAL IVPUSH SCH ×2 (09:42→21:21)
[2023-04-11] MEDS: LYTES/YERBA SANTA 240 ML BOTTLE MM SCH (09:42)
[2023-04-11] MEDS: MUPIROCIN 2% TOPICAL OINTMENT FOR DECOLONIZATION NS SCH ×2 (09:47→21:21)
[2023-04-11] MEDS ORDERED: BENZOCAINE/MENTH/CETYLPYRD CL 1 EACH LOZENGE MM PRN (12:00)
[2023-04-11] MEDS: DEXTROSE 5%-LACTATED RINGERS 1,000 ML IV SCH (13:08)
[2023-04-11 16:25] LABS: BASO % 0.2 % (0-2.0); EOS % 0.8 % (0-4.5); HEMATOCRIT 25.2 % (32.4-45.2); HEMOGLOBIN 7.7 GM/dL (10.7-15.3); LYMPH % 11.8 % (8-40); MCH 23.3 pg (25.7-33.7); MCHC 30.6 g/dl (32.0-36.0); MEAN CELL VOLUME 76.2 fl (80-96); MEAN PLT VOLUME 7.9 fl (7.5-11.1); MONO % 6.2 % (3.8-10.2); PLATELET COUNT 394 10^3/uL (134-434); RBC 3.31 M/mm3 (3.60-5.2); RDW 17.8 % (11.6-15.6); WHITE BLOOD COUNT 15.4 K/mm3 (4.0-10.0)
[2023-04-11] MEDS: CHLORHEXIDINE GLUCONATE 4% CLEANSER FOR DECOLONIZATION TP SCH (21:21)
[2023-04-12] MEDS: PIPERACILLIN/TAZOB 3.375 GM 3.375 GM in DEXTROSE 5%-WATER - 50 ML IVPB SCH ×3 (01:09→17:47)
[2023-04-12] MEDS: DEXTROSE 5%-LACTATED RINGERS 1,000 ML IV SCH ×3 (01:14→17:09)
[2023-04-12] MEDS: INSULIN ASPART SLIDING SCALE (NOVOLOG) 1 VIAL SQ SCH ×4 (06:04→22:08)
[2023-04-12 07:29] LABS: BASO % 0.2 % (0-2.0); EOS % 2.1 % (0-4.5); HEMATOCRIT 23.3 % (32.4-45.2); HEMOGLOBIN 7.1 GM/dL (10.7-15.3); LYMPH % 11.6 % (8-40); MCH 23.2 pg (25.7-33.7); MCHC 30.5 g/dl (32.0-36.0); MEAN CELL VOLUME 76.1 fl (80-96); MEAN PLT VOLUME 7.6 fl (7.5-11.1); MONO % 5.5 % (3.8-10.2); NEUT % 80.6 % (42.8-82.8); PLATELET COUNT 375 10^3/uL (134-434); RBC 3.06 M/mm3 (3.60-5.2); RDW 17.9 % (11.6-15.6); WHITE BLOOD COUNT 13.8 K/mm3 (4.0-10.0)
[2023-04-12 07:45] LABS: POTASSIUM 3.6 mmol/L (3.5-5.1)
[2023-04-12 07:51] LABS: ALBUMIN 2.3 g/dl (3.4-5.0); BLOOD UREA NITROGEN 9.6 mg/dL (7-18)
[2023-04-12 07:54] LABS: CREATININE 0.6 mg/dL (0.55-1.3); PHOSPHOROUS 1.8 mg/dL (2.5-4.9)
[2023-04-12 07:55] LABS: TOT PROT 4.9 g/dl (6.4-8.2)
[2023-04-12 08:15] LABS: BILIRUBIN,TOTAL 0.2 mg/dL (0.2-1); CALCIUM 9.1 mg/dL (8.5-10.1)
[2023-04-12] MEDS: PANTOPRAZOLE SODIUM 40 MG VIAL IVPUSH SCH ×2 (09:19→22:08)
[2023-04-12] MEDS: MUPIROCIN 2% TOPICAL OINTMENT FOR DECOLONIZATION NS SCH (12:42)
[2023-04-12] MEDS: LYTES/YERBA SANTA 240 ML BOTTLE MM SCH (12:43)
[2023-04-12] MEDS ORDERED: BENZOCAINE/MENTH/CETYLPYRD CL 1 EACH LOZENGE MM PRN (15:09)
[2023-04-12] MEDS: HYDROmorphone *PCA* 10MG/50ML DISP.SYRIN PCA SCH (15:25)
[2023-04-13] MEDS: PIPERACILLIN/TAZOB 3.375 GM 3.375 GM in DEXTROSE 5%-WATER - 50 ML IVPB SCH ×3 (02:00→17:57)
[2023-04-13] MEDS: DEXTROSE 5%-LACTATED RINGERS 1,000 ML IV SCH ×2 (02:03→16:01)
[2023-04-13] MEDS: INSULIN ASPART SLIDING SCALE (NOVOLOG) 1 VIAL SQ SCH ×4 (06:35→21:29)
[2023-04-13] MEDS: PANTOPRAZOLE SODIUM 40 MG VIAL IVPUSH SCH ×2 (09:11→21:29)
[2023-04-13] MEDS: LYTES/YERBA SANTA 240 ML BOTTLE MM SCH (09:17)
[2023-04-13] MEDS: HYDROmorphone *PCA* 10MG/50ML DISP.SYRIN PCA SCH ×3 (09:58→17:50)
[2023-04-13 10:31] LABS: BASO % 0.4 % (0-2.0); EOS % 2.8 % (0-4.5); HEMATOCRIT 24.8 % (32.4-45.2); HEMOGLOBIN 7.7 GM/dL (10.7-15.3); LYMPH % 12.8 % (8-40); MCH 23.4 pg (25.7-33.7); MCHC 31.1 g/dl (32.0-36.0); MEAN CELL VOLUME 75.3 fl (80-96); MEAN PLT VOLUME 7.9 fl (7.5-11.1); MONO % 8.1 % (3.8-10.2); NEUT % 75.9 % (42.8-82.8); PLATELET COUNT 382 10^3/uL (134-434); RBC 3.29 M/mm3 (3.60-5.2); RDW 18.1 % (11.6-15.6); WHITE BLOOD COUNT 12.6 K/mm3 (4.0-10.0)
[2023-04-13 10:53] LABS: POTASSIUM 3.4 mmol/L (3.5-5.1)
[2023-04-13 10:56] LABS: ALBUMIN 2.3 g/dl (3.4-5.0); BLOOD UREA NITROGEN 3.7 mg/dL (7-18); MAGNESIUM 1.6 mg/dL (1.8-2.4)
[2023-04-13 10:59] LABS: CREATININE 0.4 mg/dL (0.55-1.3); PHOSPHOROUS 1.8 mg/dL (2.5-4.9)
[2023-04-13 11:00] LABS: BILIRUBIN,TOTAL 0.2 mg/dL (0.2-1)
[2023-04-13 11:01] LABS: TOT PROT 5.4 g/dl (6.4-8.2)
[2023-04-13] MEDS ORDERED: POTASSIUM CHLORIDE ORAL LIQUID 20 MEQ/15 ML PO ONE (12:44)
[2023-04-13] MEDS ORDERED: AMINO ACIDS 4.25%/D5W 1,000 ML IV SCH (12:45)
[2023-04-13] MEDS ORDERED: MAGNESIUM 2GM/50ML STERILE WATER IVPB IVPB ONE (12:50)
[2023-04-13] MEDS: POTASSIUM PHOSPHATE 30 MM in AMINO ACIDS 4.25%/D5W 1,000 ML IVPB SCH (14:15)
[2023-04-14] MEDS: PIPERACILLIN/TAZOB 3.375 GM 3.375 GM in DEXTROSE 5%-WATER - 50 ML IVPB SCH ×3 (02:48→17:58)
[2023-04-14] MEDS: INSULIN ASPART SLIDING SCALE (NOVOLOG) 1 VIAL SQ SCH ×4 (06:49→23:03)
[2023-04-14] MEDS: PANTOPRAZOLE SODIUM 40 MG VIAL IVPUSH SCH ×2 (09:28→23:03)
[2023-04-14] MEDS: LYTES/YERBA SANTA 240 ML BOTTLE MM SCH (09:29)
[2023-04-14 09:54] LABS: HEMATOCRIT 22.1 % (32.4-45.2); MCH 23.5 pg (25.7-33.7); MEAN CELL VOLUME 74.4 fl (80-96); RBC 2.98 M/mm3 (3.60-5.2); WHITE BLOOD COUNT 10.5 K/mm3 (4.0-10.0)
[2023-04-14 09:55] LABS: BASO % 0.6 % (0-2.0); EOS % 4.6 % (0-4.5); LYMPH % 14.6 % (8-40); MCHC 31.7 g/dl (32.0-36.0); MEAN PLT VOLUME 7.2 fl (7.5-11.1); NEUT % 70.2 % (42.8-82.8); PLATELET COUNT 391 10^3/uL (134-434); RDW 17.9 % (11.6-15.6)
[2023-04-14 10:12] LABS: POTASSIUM 3.9 mmol/L (3.5-5.1)
[2023-04-14 10:21] LABS: ALBUMIN 2.2 g/dl (3.4-5.0); BLOOD UREA NITROGEN 6.5 mg/dL (7-18); CALCIUM 8.7 mg/dL (8.5-10.1)
[2023-04-14 10:22] LABS: MAGNESIUM 1.8 mg/dL (1.8-2.4)
[2023-04-14 10:24] LABS: CREATININE 0.4 mg/dL (0.55-1.3); PHOSPHOROUS 2.8 mg/dL (2.5-4.9)
[2023-04-14 10:26] LABS: BILIRUBIN,TOTAL 0.2 mg/dL (0.2-1); TOT PROT 5.1 g/dl (6.4-8.2)
[2023-04-14] MEDS: POTASSIUM PHOSPHATE 30 MM in AMINO ACIDS 4.25%/D5W 1,000 ML IVPB SCH ×2 (14:09→14:25)
[2023-04-14] MEDS: DEXTROSE 5%-LACTATED RINGERS 1,000 ML IV SCH (15:31)
[2023-04-14] MEDS: HYDROmorphone *PCA* 10MG/50ML DISP.SYRIN PCA SCH (15:49)
[2023-04-14] MEDS ORDERED: IRON SUCROSE INJECTION 200 MG in SODIUM CHLORIDE 90 ML IVPB ONE ×2 (16:15→20:07)
[2023-04-14] MEDS: CLARITHROMYCIN 500 MG TABLET (UD) PO SCH (20:59)
[2023-04-15] MEDS: PIPERACILLIN/TAZOB 3.375 GM 3.375 GM in DEXTROSE 5%-WATER - 50 ML IVPB SCH ×2 (02:02→09:51)
[2023-04-15] MEDS: INSULIN ASPART SLIDING SCALE (NOVOLOG) 1 VIAL SQ SCH ×4 (07:41→21:19)
[2023-04-15] MEDS ORDERED: HYDROmorphone HCl 2 MG/ML VIAL IVPB PRN (08:45)
[2023-04-15] MEDS ORDERED: ACETAMINOPHEN 325 MG TABLET (FP) PO PRN (08:45)
[2023-04-15 09:39] LABS: BASO % 0.5 % (0-2.0); EOS % 4.2 % (0-4.5); HEMATOCRIT 24.2 % (32.4-45.2); HEMOGLOBIN 7.7 GM/dL (10.7-15.3); LYMPH % 11.3 % (8-40); MCH 23.5 pg (25.7-33.7); MCHC 31.7 g/dl (32.0-36.0); MEAN CELL VOLUME 74.1 fl (80-96); MEAN PLT VOLUME 7.2 fl (7.5-11.1); MONO % 9.7 % (3.8-10.2); NEUT % 74.3 % (42.8-82.8); PLATELET COUNT 451 10^3/uL (134-434); RBC 3.26 M/mm3 (3.60-5.2); RDW 18.1 % (11.6-15.6); WHITE BLOOD COUNT 10.3 K/mm3 (4.0-10.0)
[2023-04-15] MEDS: CLARITHROMYCIN 500 MG TABLET (UD) PO SCH ×2 (09:51→20:26)
[2023-04-15] MEDS: PANTOPRAZOLE SODIUM 40 MG VIAL IVPUSH SCH (09:51)
[2023-04-15] MEDS: LYTES/YERBA SANTA 240 ML BOTTLE MM SCH (09:56)
[2023-04-15 10:34] LABS: POTASSIUM 3.9 mmol/L (3.5-5.1)
[2023-04-15 10:42] LABS: ALBUMIN 2.2 g/dl (3.4-5.0); BLOOD UREA NITROGEN 4.7 mg/dL (7-18)
[2023-04-15 10:45] LABS: BILIRUBIN,TOTAL 0.1 mg/dL (0.2-1); CREATININE 0.4 mg/dL (0.55-1.3); PHOSPHOROUS 3.3 mg/dL (2.5-4.9); TOT PROT 5.3 g/dl (6.4-8.2)
[2023-04-15 10:46] LABS: MAGNESIUM 1.6 mg/dL (1.8-2.4)
[2023-04-15] MEDS: oxyCODONE HCL 5 MG TABLET PO PRN ×2 (11:23→20:27)
[2023-04-15] MEDS: POTASSIUM PHOSPHATE 30 MM in AMINO ACIDS 4.25%/D5W 1,000 ML IVPB SCH (13:49)
[2023-04-15] MEDS ORDERED: MAGNESIUM OXIDE 400 MG TABLET (FP) PO ONE (17:19)
[2023-04-15] MEDS: AMOXICILLIN 500 MG CAPSULE (FP) PO SCH (21:12)
[2023-04-15] MEDS: PANTOPRAZOLE 40 MG TABLET PO SCH (21:12)
[2023-04-16] MEDS: INSULIN ASPART SLIDING SCALE (NOVOLOG) 1 VIAL SQ SCH ×4 (07:13→21:40)
[2023-04-16 08:27] LABS: BASO % 0.6 % (0-2.0); EOS % 4.5 % (0-4.5); HEMATOCRIT 24.4 % (32.4-45.2); HEMOGLOBIN 7.3 GM/dL (10.7-15.3); LYMPH % 14.6 % (8-40); MCH 22.4 pg (25.7-33.7); MEAN CELL VOLUME 74.9 fl (80-96); MEAN PLT VOLUME 7.2 fl (7.5-11.1); MONO % 11.9 % (3.8-10.2); NEUT % 68.4 % (42.8-82.8); PLATELET COUNT 482 10^3/uL (134-434); RBC 3.26 M/mm3 (3.60-5.2); RDW 18.2 % (11.6-15.6); WHITE BLOOD COUNT 11.9 K/mm3 (4.0-10.0)
[2023-04-16] MEDS: CLARITHROMYCIN 500 MG TABLET (UD) PO SCH ×2 (08:30→21:32)
[2023-04-16 08:48] LABS: POTASSIUM 4.1 mmol/L (3.5-5.1)
[2023-04-16] MEDS: AMOXICILLIN 500 MG CAPSULE (FP) PO SCH ×2 (09:30→21:32)
[2023-04-16] MEDS: oxyCODONE HCL 5 MG TABLET PO PRN ×2 (09:31→20:29)
[2023-04-16] MEDS: PANTOPRAZOLE 40 MG TABLET PO SCH ×2 (09:31→21:32)
[2023-04-16 09:32] LABS: ALBUMIN 2.2 g/dl (3.4-5.0); BLOOD UREA NITROGEN 4.7 mg/dL (7-18); CALCIUM 9.6 mg/dL (8.5-10.1); MAGNESIUM 1.8 mg/dL (1.8-2.4)
[2023-04-16] MEDS: LYTES/YERBA SANTA 240 ML BOTTLE MM SCH (09:33)
[2023-04-16] MEDS: FERROUS SO4 325 MG TABLET (FP) PO SCH (12:26)
[2023-04-16 13:04] LABS: CREATININE 0.3 mg/dL (0.55-1.3)
[2023-04-16 13:05] LABS: PHOSPHOROUS 3.7 mg/dL (2.5-4.9)
[2023-04-16 13:07] LABS: BILIRUBIN,TOTAL 0.2 mg/dL (0.2-1); TOT PROT 5.4 g/dl (6.4-8.2)
[2023-04-16] MEDS ORDERED: ALPRAZolam 1 MG TABLET PO PRN (19:32)
[2023-04-16] MEDS: ROSUVASTATIN CA 20 MG TABLET PO SCH (21:32)
[2023-04-16] MEDS ORDERED: QUEtiapine FUMARATE 200 MG TABLET PO SCH (22:00)
[2023-04-16 23:55] VITALS: BMI 24.2
[2023-04-17] MEDS: INSULIN ASPART SLIDING SCALE (NOVOLOG) 1 VIAL SQ SCH ×4 (06:46→22:19)
[2023-04-17] MEDS: CLARITHROMYCIN 500 MG TABLET (UD) PO SCH ×2 (09:27→20:03)
[2023-04-17] MEDS: AMOXICILLIN 500 MG CAPSULE (FP) PO SCH ×2 (09:28→22:14)
[2023-04-17] MEDS: FERROUS SO4 325 MG TABLET (FP) PO SCH (09:28)
[2023-04-17] MEDS: PANTOPRAZOLE 40 MG TABLET PO SCH ×2 (09:28→22:14)
[2023-04-17] MEDS: oxyCODONE HCL 5 MG TABLET PO PRN ×2 (09:28→20:02)
[2023-04-17] MEDS: LYTES/YERBA SANTA 240 ML BOTTLE MM SCH (09:30)
[2023-04-17] MEDS: EZETIMIBE 10 MG TABLET (FP) PO SCH (09:43)
[2023-04-17 11:08] LABS: BASO % 0.6 % (0-2.0); EOS % 2.9 % (0-4.5); HEMATOCRIT 26.5 % (32.4-45.2); HEMOGLOBIN 7.9 GM/dL (10.7-15.3); MCH 22.8 pg (25.7-33.7); MCHC 29.8 g/dl (32.0-36.0); MEAN CELL VOLUME 76.5 fl (80-96); MEAN PLT VOLUME 7.3 fl (7.5-11.1); MONO % 7.5 % (3.8-10.2); PLATELET COUNT 592 10^3/uL (134-434); RBC 3.46 M/mm3 (3.60-5.2); RDW 18.1 % (11.6-15.6); WHITE BLOOD COUNT 16.6 K/mm3 (4.0-10.0)
[2023-04-17 12:06] LABS: BLOOD UREA NITROGEN 4.8 mg/dL (7-18); CALCIUM 10.3 mg/dL (8.5-10.1); MAGNESIUM 1.8 mg/dL (1.8-2.4)
[2023-04-17 12:09] LABS: CREATININE 0.5 mg/dL (0.55-1.3); PHOSPHOROUS 3.4 mg/dL (2.5-4.9)
[2023-04-17 12:11] LABS: TOT PROT 6.6 g/dl (6.4-8.2)
[2023-04-17 12:13] LABS: ALBUMIN 2.8 g/dl (3.4-5.0); BILIRUBIN,TOTAL 0.2 mg/dL (0.2-1)
[2023-04-17] MEDS: ROSUVASTATIN CA 20 MG TABLET PO SCH (22:14)
[2023-04-18] MEDS: oxyCODONE HCL 5 MG TABLET PO PRN ×3 (04:24→21:26)
[2023-04-18] MEDS: INSULIN ASPART SLIDING SCALE (NOVOLOG) 1 VIAL SQ SCH ×4 (06:53→21:45)
[2023-04-18] MEDS: LYTES/YERBA SANTA 240 ML BOTTLE MM SCH (10:05)
[2023-04-18] MEDS: CLARITHROMYCIN 500 MG TABLET (UD) PO SCH ×2 (10:07→21:15)
[2023-04-18] MEDS: PANTOPRAZOLE 40 MG TABLET PO SCH ×2 (10:07→21:15)
[2023-04-18] MEDS: EZETIMIBE 10 MG TABLET (FP) PO SCH (10:07)
[2023-04-18] MEDS: AMOXICILLIN 500 MG CAPSULE (FP) PO SCH ×2 (10:07→21:15)
[2023-04-18 11:10] LABS: BASO % 0.3 % (0-2.0); EOS % 2.2 % (0-4.5); HEMATOCRIT 22.8 % (32.4-45.2); LYMPH % 11.4 % (8-40); MCH 23.2 pg (25.7-33.7); MCHC 30.5 g/dl (32.0-36.0); MEAN CELL VOLUME 76.1 fl (80-96); MEAN PLT VOLUME 7.8 fl (7.5-11.1); MONO % 8.6 % (3.8-10.2); NEUT % 77.5 % (42.8-82.8); PLATELET COUNT 499 10^3/uL (134-434); RDW 18.7 % (11.6-15.6); WHITE BLOOD COUNT 14.7 K/mm3 (4.0-10.0)
[2023-04-18 11:15] LABS: POTASSIUM 3.8 mmol/L (3.5-5.1)
[2023-04-18 11:17] LABS: CALCIUM 9.5 mg/dL (8.5-10.1)
[2023-04-18 11:18] LABS: BLOOD UREA NITROGEN 4.5 mg/dL (7-18)
[2023-04-18 11:21] LABS: CREATININE 0.5 mg/dL (0.55-1.3)
[2023-04-18 11:22] LABS: TOT PROT 5.4 g/dl (6.4-8.2)
[2023-04-18 11:23] LABS: BILIRUBIN,TOTAL 0.1 mg/dL (0.2-1)
[2023-04-18 11:33] LABS: ALBUMIN 2.2 g/dl (3.4-5.0)
[2023-04-18] MEDS: ROSUVASTATIN CA 20 MG TABLET PO SCH (21:15)
[2023-04-19] MEDS: MEROPENEM 1 GM in DEXTROSE 5%-WATER 100 ML IVPB SCH ×3 (01:20→17:27)
[2023-04-19] MEDS: oxyCODONE HCL 5 MG TABLET PO PRN ×3 (01:29→21:39)
[2023-04-19] MEDS: INSULIN ASPART SLIDING SCALE (NOVOLOG) 1 VIAL SQ SCH ×4 (06:45→21:32)
[2023-04-19] MEDS: EZETIMIBE 10 MG TABLET (FP) PO SCH (09:10)
[2023-04-19] MEDS: AMOXICILLIN 500 MG CAPSULE (FP) PO SCH ×2 (09:10→21:28)
[2023-04-19] MEDS: PANTOPRAZOLE 40 MG TABLET PO SCH ×2 (09:10→21:28)
[2023-04-19] MEDS: CLARITHROMYCIN 500 MG TABLET (UD) PO SCH ×2 (09:11→20:28)
[2023-04-19] MEDS: LYTES/YERBA SANTA 240 ML BOTTLE MM SCH (09:11)
[2023-04-19 09:43] LABS: BASO % 0.9 % (0-2.0); EOS % 2.1 % (0-4.5); HEMATOCRIT 22.6 % (32.4-45.2); HEMOGLOBIN 7.1 GM/dL (10.7-15.3); LYMPH % 15.2 % (8-40); MCH 23.8 pg (25.7-33.7); MCHC 31.5 g/dl (32.0-36.0); MEAN CELL VOLUME 75.5 fl (80-96); MEAN PLT VOLUME 8.3 fl (7.5-11.1); MONO % 8.2 % (3.8-10.2); NEUT % 73.6 % (42.8-82.8); PLATELET COUNT 499 10^3/uL (134-434); RBC 2.99 M/mm3 (3.60-5.2); RDW 18.9 % (11.6-15.6); WHITE BLOOD COUNT 15.9 K/mm3 (4.0-10.0)
[2023-04-19 09:58] LABS: POTASSIUM 4.7 mmol/L (3.5-5.1)
[2023-04-19 10:00] LABS: CALCIUM 9.8 mg/dL (8.5-10.1)
[2023-04-19] MEDS ORDERED: IRON SUCROSE INJECTION 100 MG in SODIUM CHLORIDE 95 ML IVPB ONE (10:00)
[2023-04-19 10:01] LABS: BLOOD UREA NITROGEN 4.2 mg/dL (7-18)
[2023-04-19 10:05] LABS: CREATININE 0.5 mg/dL (0.55-1.3)
[2023-04-19] MEDS ORDERED: INSULIN ASPART SLIDING SCALE (NOVOLOG) 1 VIAL SQ ONE ×2 (10:34→18:39)
[2023-04-19] MEDS: ROSUVASTATIN CA 20 MG TABLET PO SCH (21:28)
[2023-04-20] MEDS ORDERED: MEROPENEM 1 GM VIAL (RESTRICTED TO ID) IVPB ONE ×2 (01:38→09:29)
[2023-04-20] MEDS: MEROPENEM 1 GM in DEXTROSE 5%-WATER 100 ML IVPB SCH ×3 (01:41→17:12)
[2023-04-20] MEDS: INSULIN ASPART SLIDING SCALE (NOVOLOG) 1 VIAL SQ SCH ×4 (06:05→22:22)
[2023-04-20] MEDS: CLARITHROMYCIN 500 MG TABLET (UD) PO SCH ×2 (09:33→20:37)
[2023-04-20] MEDS: AMOXICILLIN 500 MG CAPSULE (FP) PO SCH ×2 (09:33→22:21)
[2023-04-20] MEDS: PANTOPRAZOLE 40 MG TABLET PO SCH ×2 (09:33→22:20)
[2023-04-20] MEDS: EZETIMIBE 10 MG TABLET (FP) PO SCH (09:34)
[2023-04-20] MEDS: LYTES/YERBA SANTA 240 ML BOTTLE MM SCH (09:34)
[2023-04-20] MEDS: oxyCODONE HCL 5 MG TABLET PO PRN ×2 (11:01→20:37)
[2023-04-20 12:55] LABS: BASO % 0.7 % (0-2.0); EOS % 1.4 % (0-4.5); HEMOGLOBIN 8.1 GM/dL (10.7-15.3); MCH 22.7 pg (25.7-33.7); MCHC 30.1 g/dl (32.0-36.0); MEAN CELL VOLUME 75.5 fl (80-96); MEAN PLT VOLUME 8.4 fl (7.5-11.1); MONO % 5.4 % (3.8-10.2); NEUT % 83.5 % (42.8-82.8); PLATELET COUNT 647 10^3/uL (134-434); RBC 3.58 M/mm3 (3.60-5.2); RDW 19.4 % (11.6-15.6); WHITE BLOOD COUNT 18.6 K/mm3 (4.0-10.0)
[2023-04-20] MEDS: ROSUVASTATIN CA 20 MG TABLET PO SCH (22:20)
[2023-04-21] MEDS: MEROPENEM 1 GM in DEXTROSE 5%-WATER 100 ML IVPB SCH (02:00)
[2023-04-21] MEDS: INSULIN ASPART SLIDING SCALE (NOVOLOG) 1 VIAL SQ SCH ×4 (07:09→21:48)
[2023-04-21] MEDS ORDERED: INSULIN ASPART SLIDING SCALE (NOVOLOG) 1 VIAL SQ ONE (07:19)
[2023-04-21] MEDS: AMOXICILLIN 500 MG CAPSULE (FP) PO SCH ×2 (09:16→21:48)
[2023-04-21] MEDS: CLARITHROMYCIN 500 MG TABLET (UD) PO SCH ×2 (09:16→20:35)
[2023-04-21] MEDS: EZETIMIBE 10 MG TABLET (FP) PO SCH (09:16)
[2023-04-21] MEDS: PANTOPRAZOLE 40 MG TABLET PO SCH ×2 (09:16→21:48)
[2023-04-21] MEDS: LYTES/YERBA SANTA 240 ML BOTTLE MM SCH (09:18)
[2023-04-21 11:21] LABS: BASO % 0.8 % (0-2.0); EOS % 2.5 % (0-4.5); HEMATOCRIT 25.2 % (32.4-45.2); HEMOGLOBIN 7.6 GM/dL (10.7-15.3); LYMPH % 13.1 % (8-40); MCH 22.8 pg (25.7-33.7); MCHC 30.2 g/dl (32.0-36.0); MEAN CELL VOLUME 75.7 fl (80-96); MEAN PLT VOLUME 8.3 fl (7.5-11.1); MONO % 6.8 % (3.8-10.2); NEUT % 76.8 % (42.8-82.8); PLATELET COUNT 563 10^3/uL (134-434); RBC 3.33 M/mm3 (3.60-5.2); RDW 20.2 % (11.6-15.6)
[2023-04-21 11:57] LABS: POTASSIUM 4.6 mmol/L (3.5-5.1)
[2023-04-21 12:15] LABS: ALBUMIN 2.4 g/dl (3.4-5.0); BLOOD UREA NITROGEN 3.9 mg/dL (7-18); CALCIUM 9.9 mg/dL (8.5-10.1)
[2023-04-21 12:52] LABS: CREATININE 0.6 mg/dL (0.55-1.3)
[2023-04-21 12:53] LABS: BILIRUBIN,TOTAL 0.2 mg/dL (0.2-1); TOT PROT 6.6 g/dl (6.4-8.2)
[2023-04-21] MEDS ORDERED: LORazepam 1 MG TABLET PO ONE (13:45)
[2023-04-21 14:40] VITALS: RESP 18
[2023-04-21] MEDS: oxyCODONE HCL 5 MG TABLET PO PRN ×2 (16:39→22:45)
[2023-04-21] MEDS: ERTAPENEM SODIUM 1 GM VIAL IM SCH (17:41)
[2023-04-21] MEDS: ROSUVASTATIN CA 20 MG TABLET PO SCH (21:48)
[2023-04-22] MEDS: INSULIN ASPART SLIDING SCALE (NOVOLOG) 1 VIAL SQ SCH ×4 (06:39→21:54)
[2023-04-22] MEDS: AMOXICILLIN 500 MG CAPSULE (FP) PO SCH ×2 (09:17→21:57)
[2023-04-22] MEDS: CLARITHROMYCIN 500 MG TABLET (UD) PO SCH ×2 (09:17→21:57)
[2023-04-22] MEDS: PANTOPRAZOLE 40 MG TABLET PO SCH ×2 (09:17→21:56)
[2023-04-22] MEDS: EZETIMIBE 10 MG TABLET (FP) PO SCH (09:17)
[2023-04-22] MEDS: ERTAPENEM SODIUM 1 GM VIAL IM SCH (09:18)
[2023-04-22] MEDS: LYTES/YERBA SANTA 240 ML BOTTLE MM SCH (09:18)
[2023-04-22 10:37] LABS: HEMATOCRIT 26.8 % (32.4-45.2); MCH 22.5 pg (25.7-33.7); MCHC 29.8 g/dl (32.0-36.0); MEAN CELL VOLUME 75.7 fl (80-96); MEAN PLT VOLUME 8.2 fl (7.5-11.1); PLATELET COUNT 752 10^3/uL (134-434); RBC 3.54 M/mm3 (3.60-5.2); RDW 20.3 % (11.6-15.6); WHITE BLOOD COUNT 13.7 K/mm3 (4.0-10.0)
[2023-04-22 10:59] LABS: POTASSIUM 4.8 mmol/L (3.5-5.1)
[2023-04-22 11:03] LABS: ALBUMIN 2.4 g/dl (3.4-5.0); BLOOD UREA NITROGEN 4.1 mg/dL (7-18)
[2023-04-22 11:06] LABS: CREATININE 0.6 mg/dL (0.55-1.3)
[2023-04-22 11:07] LABS: BILIRUBIN,TOTAL 0.2 mg/dL (0.2-1)
[2023-04-22 11:08] LABS: TOT PROT 6.6 g/dl (6.4-8.2)
[2023-04-22 11:40] LABS: ANISOCYTOSIS 1+
[2023-04-22 12:11] LABS: ERYTHROCYTE SEDIMENTATION RATE 69 mm/hr (0-30)
[2023-04-22] MEDS: oxyCODONE HCL 5 MG TABLET PO PRN (18:17)
[2023-04-22] MEDS: ENOXAPARIN NA (PORCINE) 40 MG/0.4 ML DISP.SYRIN SQ SCH (18:20)
[2023-04-22] MEDS: ROSUVASTATIN CA 20 MG TABLET PO SCH (21:57)
[2023-04-23] MEDS: oxyCODONE HCL 5 MG TABLET PO PRN ×3 (00:04→17:10)
[2023-04-23] MEDS: INSULIN ASPART SLIDING SCALE (NOVOLOG) 1 VIAL SQ SCH ×4 (06:16→21:58)
[2023-04-23] MEDS: PANTOPRAZOLE 40 MG TABLET PO SCH ×2 (09:18→21:52)
[2023-04-23] MEDS: EZETIMIBE 10 MG TABLET (FP) PO SCH (09:18)
[2023-04-23] MEDS: ENOXAPARIN NA (PORCINE) 40 MG/0.4 ML DISP.SYRIN SQ SCH ×2 (09:18→09:38)
[2023-04-23] MEDS: CLARITHROMYCIN 500 MG TABLET (UD) PO SCH ×2 (09:19→20:51)
[2023-04-23] MEDS: AMOXICILLIN 500 MG CAPSULE (FP) PO SCH ×2 (09:19→21:52)
[2023-04-23 10:00] LABS: BASO % 1.3 % (0-2.0); EOS % 2.9 % (0-4.5); HEMATOCRIT 25.9 % (32.4-45.2); HEMOGLOBIN 7.8 GM/dL (10.7-15.3); LYMPH % 16.3 % (8-40); MCH 22.7 pg (25.7-33.7); MCHC 29.9 g/dl (32.0-36.0); MEAN CELL VOLUME 75.8 fl (80-96); MONO % 9.6 % (3.8-10.2); NEUT % 69.9 % (42.8-82.8); PLATELET COUNT 763 10^3/uL (134-434); RBC 3.42 M/mm3 (3.60-5.2); RDW 19.8 % (11.6-15.6); WHITE BLOOD COUNT 13.4 K/mm3 (4.0-10.0)
[2023-04-23 10:28] LABS: POTASSIUM 4.5 mmol/L (3.5-5.1)
[2023-04-23 10:29] LABS: CALCIUM 9.8 mg/dL (8.5-10.1)
[2023-04-23 10:30] LABS: ALBUMIN 2.3 g/dl (3.4-5.0); BLOOD UREA NITROGEN 4.8 mg/dL (7-18)
[2023-04-23 10:33] LABS: CREATININE 0.6 mg/dL (0.55-1.3)
[2023-04-23 10:34] LABS: BILIRUBIN,TOTAL 0.2 mg/dL (0.2-1)
[2023-04-23 10:35] LABS: TOT PROT 6.4 g/dl (6.4-8.2)
[2023-04-23] MEDS: ERTAPENEM SODIUM 1 GM VIAL IM SCH (15:39)
[2023-04-23] MEDS: LYTES/YERBA SANTA 240 ML BOTTLE MM SCH (15:40)
[2023-04-23] MEDS: ROSUVASTATIN CA 20 MG TABLET PO SCH (21:52)
[2023-04-24] MEDS: INSULIN ASPART SLIDING SCALE (NOVOLOG) 1 VIAL SQ SCH ×2 (06:07→11:28)
[2023-04-24] MEDS ORDERED: IRON SUCROSE INJECTION 200 MG in SODIUM CHLORIDE 90 ML IVPB ONE (08:11)
[2023-04-24 08:47] VITALS: BP 152/85; PULSE 96; TEMP 97.7
[2023-04-24] MEDS ORDERED: ERTAPENEM SODIUM 1 GM VIAL IM ONE (10:00)
[2023-04-24] MEDS: EZETIMIBE 10 MG TABLET (FP) PO SCH (10:06)
[2023-04-24] MEDS: ENOXAPARIN NA (PORCINE) 40 MG/0.4 ML DISP.SYRIN SQ SCH ×2 (10:06→10:17)
[2023-04-24] MEDS: PANTOPRAZOLE 40 MG TABLET PO SCH (10:06)
[2023-04-24] MEDS: AMOXICILLIN 500 MG CAPSULE (FP) PO SCH (10:06)
[2023-04-24] MEDS: CLARITHROMYCIN 500 MG TABLET (UD) PO SCH (10:06)
[2023-04-24] MEDS: oxyCODONE HCL 5 MG TABLET PO PRN (10:11)
[2023-04-24] MEDS: LYTES/YERBA SANTA 240 ML BOTTLE MM SCH (11:24)
[2023-04-24] MEDS: IRON SUCROSE INJECTION 300 MG in SODIUM CHLORIDE 235 ML IVPB ONE ×2 (11:27→12:05)
== END 2023-04-24 14:54 | disposition home health service (06) | DRG 222 ==
LOC: JER 21:08 → JERBED 04-10 01:09 → JICU 04-10 02:03 → J6S 04-12 14:40
PROVIDERS: ADMIT Internal Medicine Pulmonary Disease; ATTEND Internal Medicine
PROC: 0D9900Z Drainage of Duodenum with Drainage Device, Open Approach (ICD-10-PCS; 2023-04-10)
PROC: 0DU907Z Supplement Duodenum with Autologous Tissue Substitute, Open Approach (ICD-10-PCS; principal; 2023-04-10 04:29)
DX: K26.5 Chronic or unspecified duodenal ulcer with perforation (principal); J95.89 Other postprocedural complications and disorders of respiratory system, not elsewhere classified; J18.9 Pneumonia, unspecified organism; E11.9 Type 2 diabetes mellitus without complications; K65.9 Peritonitis, unspecified; K66.1 Hemoperitoneum; K29.60 Other gastritis without bleeding; B96.81 Helicobacter pylori [H. pylori] as the cause of diseases classified elsewhere; K29.80 Duodenitis without bleeding; D62 Acute posthemorrhagic anemia; D75.838 Other thrombocytosis; I25.10 Atherosclerotic heart disease of native coronary artery without angina pectoris; D72.829 Elevated white blood cell count, unspecified; D50.9 Iron deficiency anemia, unspecified; E78.5 Hyperlipidemia, unspecified; I11.0 Hypertensive heart disease with heart failure; I50.9 Heart failure, unspecified; Z95.5 Presence of coronary angioplasty implant and graft; Y83.8 Other surgical procedures as the cause of abnormal reaction of the patient, or of later complication, without mention of misadventure at the time of the procedure
CPT/HCPCS: 0241U-QW; 36415; 71045-TC-FY; 71260-TC; 74177-TC; 80048; 80053; 82607; 82728; 82746; 82962; 83540; 83550; 83605; 83690; 83735; 84100; 85025; 85045; 85651; 86140; 86677; 86922; 87040; 87081; 88304-TC; 93005; 93010; 94760; 97116-GP; 97162-GP; 99285-25; J1644; J1756; Q9967

== ENCOUNTER 2023-09-09 20:08 | Emergency (ER) | payer OTHER ==
[2023-09-09 20:16] VITALS: TEMP 98.6; BMI 23.2
[2023-09-09] MEDS ORDERED: ONDANSETRON 4 MG/2 ML VIAL ONE (20:48)
[2023-09-09] MEDS ORDERED: ACETAMINOPHEN INJECTION 100 ML IVPB ONE (20:48)
[2023-09-09] MEDS ORDERED: FAMOTIDINE 20 MG/50 ML IVPB 20 MG/50 ML MG IVPB ONE (20:49)
[2023-09-09] MEDS: ACETAMINOPHEN 1000 MG/100 ML BAG IVPB ONE (21:34)
[2023-09-09 21:35] LABS: BASO % 0.6 % (0-2.0); EOS % 1.4 % (0-4.5); HEMATOCRIT 35.4 % (32.4-45.2); HEMOGLOBIN 11.8 GM/dL (10.7-15.3); LYMPH % 19.8 % (8-40); MCH 26.2 pg (25.7-33.7); MCHC 33.2 g/dl (32.0-36.0); MEAN CELL VOLUME 78.7 fl (80-96); MEAN PLT VOLUME 7.5 fl (7.5-11.1); MONO % 6.1 % (3.8-10.2); NEUT % 72.1 % (42.8-82.8); PLATELET COUNT 323 10^3/uL (134-434); RDW 20.7 % (11.6-15.6); WHITE BLOOD COUNT 10.2 K/mm3 (4.0-10.0)
[2023-09-09] MEDS: LACTATED RINGERS SOLUTION 1000 ML INFUS.BAG IV ONE (21:35)
[2023-09-09] MEDS: ONDANSETRON 4 MG/2 ML VIAL IVPUSH ONE (21:35)
[2023-09-09] MEDS: FAMOTIDINE 20 MG/50 ML IVPB 20 MG/50 ML MG IVPB ONE (21:35)
[2023-09-09 21:43] LABS: PROTHROMBIN TIME (PATIENT) 11.3 SEC (9.7-13.0)
[2023-09-09 21:48] LABS: POTASSIUM 3.2 mmol/L (3.5-5.1)
[2023-09-09 21:51] LABS: ALBUMIN 3.4 g/dl (3.4-5.0); BLOOD UREA NITROGEN 17.8 mg/dL (7-18); CALCIUM 10.2 mg/dL (8.5-10.1); MAGNESIUM 1.7 mg/dL (1.8-2.4)
[2023-09-09 21:54] LABS: CREATININE 0.7 mg/dL (0.55-1.3)
[2023-09-09 21:56] LABS: BILIRUBIN,TOTAL 0.2 mg/dL (0.2-1); TOT PROT 6.7 g/dl (6.4-8.2)
[2023-09-09 22:10] LABS: ANISOCYTOSIS 2+; MACROCYTOSIS 1+
[2023-09-09] MEDS ORDERED: oxyCODONE HCL 5 MG TABLET ONE (22:22)
[2023-09-09] MEDS: oxyCODONE HCL 5 MG TABLET PO ONE (22:25)
[2023-09-09] MEDS ORDERED: KCL 10 MEQ IVPB 10 MEQ/100 ML INFUS.BAG IVPB ONE (22:30)
[2023-09-09] MEDS ORDERED: KCL 10 MEQ IVPB 20 MEQ/200 ML INFUS.BAG IVPB ONE (22:33)
[2023-09-09] MEDS: KCL 10 MEQ IVPB 10 MEQ/100 ML INFUS.BAG IVPB SCH (22:48)
[2023-09-10 00:08] LABS: EPI CELLS 27 /uL (0-25.1); HYALINE CASTS 0 /uL (0-3.1); URINE APPEARANCE CLEAR; URINE BACTERIA 323 /uL (0-1359); URINE BILIRUBIN NEGATIVE (NEGATIVE); URINE COLOR YELLOW; URINE GLUCOSE (UA) TRACE (NEGATIVE); URINE KETONE NEGATIVE (NEGATIVE); URINE LEUK ESTERASE 1+ (NEGATIVE); URINE NITRITE NEGATIVE (NEGATIVE); URINE PROTEIN NEGATIVE (NEGATIVE); URINE RBC 15 /uL (0-23.9); URINE WBC 72 /uL (0-25.8)
[2023-09-10] MEDS ORDERED: POTASSIUM CHLORIDE ORAL LIQUID 20 MEQ/15 ML ONE (00:24)
[2023-09-10 00:46] VITALS: BP 147/79; PULSE 99; RESP 16
[2023-09-10] MEDS ORDERED: ONDANSETRON *ODT* 4 MG TABLET ONE (00:52)
[2023-09-10] MEDS: POTASSIUM CHLORIDE ORAL LIQUID 20 MEQ/15 ML PO ONE (00:57)
[2023-09-10] MEDS: ONDANSETRON *ODT* 4 MG TABLET SL ONE (00:58)
== END 2023-09-10 00:58 | disposition home or self-care (01) ==
LOC: JER 20:08
PROC: 3E033GC Introduction of Other Therapeutic Substance into Peripheral Vein, Percutaneous Approach (ICD-10-PCS; principal; 2023-09-09)
PROC: 3E033NZ Introduction of Analgesics, Hypnotics, Sedatives into Peripheral Vein, Percutaneous Approach (ICD-10-PCS; 2023-09-09)
PROC: 3E033GC Introduction of Other Therapeutic Substance into Peripheral Vein, Percutaneous Approach (ICD-10-PCS; 2023-09-09)
DX: R10.33 Periumbilical pain (principal); R11.2 Nausea with vomiting, unspecified
CPT/HCPCS: 36415; 74177-TC; 80053; 81003; 83605; 83690; 83735; 85025; 85610; 85730; 87086; 93005; 93010; 99285-25; J0131; Q0162; Q9967

== ENCOUNTER 2024-01-11 09:53 | Emergency (ER) | payer OTHER ==
[2024-01-11 10:05] VITALS: TEMP 97.9; BMI 24.4
[2024-01-11] MEDS ORDERED: ASPIRIN 81 MG CHEWABLE TABLETS ONE (11:06)
[2024-01-11] MEDS: ASPIRIN 81 MG CHEWABLE TABLETS PO ONE (11:31)
[2024-01-11 11:37] LABS: BASO % 0.7 % (0-2.0); EOS % 9.6 % (0-4.5); HEMATOCRIT 41.1 % (32.4-45.2); HEMOGLOBIN 13.8 GM/dL (10.7-15.3); LYMPH % 27.5 % (8-40); MCH 29.3 pg (25.7-33.7); MCHC 33.5 g/dl (32.0-36.0); MEAN CELL VOLUME 87.5 fl (80-96); MEAN PLT VOLUME 8.2 fl (7.5-11.1); MONO % 8.2 % (3.8-10.2); PLATELET COUNT 280 10^3/uL (134-434); RDW 16.2 % (11.6-15.6); WHITE BLOOD COUNT 5.6 K/mm3 (4.0-10.0)
[2024-01-11 12:38] LABS: CHLORIDE 99 mmol/L (98-107); SODIUM 134 mmol/L (136-145)
[2024-01-11] MEDS ORDERED: IBUPROFEN 600 MG TABLET (FP) PO ONE (12:39)
[2024-01-11 12:40] LABS: CALCIUM 9.5 mg/dL (8.5-10.1); GLUCOSE,RANDOM 227 mg/dL (74-106)
[2024-01-11] MEDS ORDERED: LIDOCAINE 4% PATCH TP ONE (12:40)
[2024-01-11 12:41] LABS: ALBUMIN 3.4 g/dl (3.4-5.0); BLOOD UREA NITROGEN 10.7 mg/dL (7-18); CO2 29 mmol/L (21-32); MAGNESIUM 1.9 mg/dL (1.8-2.4)
[2024-01-11 12:44] LABS: CREATININE 0.8 mg/dL (0.55-1.3); SGOT/AST 42 U/L (15-37); SGPT/ALT 18 U/L (13-61)
[2024-01-11 12:46] LABS: BILIRUBIN,TOTAL 0.4 mg/dL (0.2-1); TOT PROT 7.4 g/dl (6.4-8.2)
[2024-01-11 12:47] LABS: ALK PHOS 101 U/L (45-117)
[2024-01-11] MEDS: IBUPROFEN 600 MG TABLET (FP) PO ONE (12:55)
[2024-01-11] MEDS: LIDOCAINE 5% TOPICAL PATCH TP ONE (12:55)
[2024-01-11 12:59] LABS: ANION GAP 6 mmol/L (4-13); POTASSIUM 6.3 mmol/L (3.5-5.1)
[2024-01-11 13:51] VITALS: BP 130/86; PULSE 98; RESP 15
[2024-01-11 19:09] LABS: HIV INTERPRETATION NEGATIVE (NEGATIVE)
[2024-01-11] MEDS ORDERED: LIDOCAINE PATCH REMOVAL MC ONE (22:00)
== END 2024-01-11 13:50 | disposition home or self-care (01) ==
LOC: JER 09:53
DX: R07.89 Other chest pain (principal)
CPT/HCPCS: 36415; 71045-TC-FY; 80053; 82550; 83690; 83735; 84132; 84484; 85025; 86803; 87389; 93005; 93010; 99285-25

== ENCOUNTER 2024-01-15 15:15 | Inpatient (IN) | payer OTHER ==
[2024-01-15] MEDS ORDERED: ONDANSETRON 4 MG/2 ML VIAL ONE (17:10)
[2024-01-15] MEDS ORDERED: ACETAMINOPHEN INJECTION 100 ML ONE (17:10)
[2024-01-15] MEDS ORDERED: FAMOTIDINE 20 MG/50 ML IVPB 20 MG/50 ML MG IVPB ONE (17:11)
[2024-01-15] MEDS: LACTATED RINGERS SOLUTION 1000 ML INFUS.BAG IV ONE (17:22)
[2024-01-15] MEDS: ACETAMINOPHEN 1000 MG/100 ML BAG IVPB ONE (17:22)
[2024-01-15] MEDS: FAMOTIDINE 20 MG/50 ML IVPB 20 MG/50 ML MG IVPB ONE (17:22)
[2024-01-15] MEDS: ONDANSETRON 4 MG/2 ML VIAL IVPUSH ONE (17:22)
[2024-01-15] MEDS: morphine SULFATE 4 MG/ML VIAL IVPUSH ONE ×2 (17:22→18:02)
[2024-01-15 17:25] LABS: BASO % 0.2 % (0-2.0); HEMATOCRIT 44.1 % (32.4-45.2); HEMOGLOBIN 14.6 GM/dL (10.7-15.3); MCH 28.7 pg (25.7-33.7); MCHC 33.2 g/dl (32.0-36.0); MEAN CELL VOLUME 86.7 fl (80-96); MEAN PLT VOLUME 8.7 fl (7.5-11.1); NEUT % 84.8 % (42.8-82.8); PLATELET COUNT 386 10^3/uL (134-434); RBC 5.09 M/mm3 (3.60-5.2); RDW 16.1 % (11.6-15.6)
[2024-01-15 17:37] LABS: INR 0.9 (0.83-1.09); PROTHROMBIN TIME (PATIENT) 10.2 SEC (9.7-13.0)
[2024-01-15 17:41] LABS: CHLORIDE 99 mmol/L (98-107); SODIUM 130 mmol/L (136-145)
[2024-01-15 17:43] LABS: CALCIUM 9.9 mg/dL (8.5-10.1)
[2024-01-15 17:44] LABS: ALBUMIN 3.4 g/dl (3.4-5.0); CO2 24 mmol/L (21-32); GLUCOSE,RANDOM 250 mg/dL (74-106)
[2024-01-15 17:47] LABS: SGOT/AST 73 U/L (15-37)
[2024-01-15 17:48] LABS: BILIRUBIN,TOTAL 0.4 mg/dL (0.2-1); TOT PROT 7.5 g/dl (6.4-8.2)
[2024-01-15 17:49] LABS: ALK PHOS 78 U/L (45-117)
[2024-01-15 17:51] LABS: ANION GAP 7 mmol/L (4-13); POTASSIUM 8.3 mmol/L (3.5-5.1); SGPT/ALT 17 U/L (13-61)
[2024-01-15] MEDS ORDERED: morphine SULFATE 4 MG/ML VIAL ONE (17:55)
[2024-01-15 19:14] LABS: POTASSIUM 4.5 mmol/L (3.5-5.1)
[2024-01-15] MEDS ORDERED: HYDROmorphone HCl 2 MG/ML VIAL ONE (19:16)
[2024-01-15 19:17] LABS: ALBUMIN 3.3 g/dl (3.4-5.0); BLOOD UREA NITROGEN 29.5 mg/dL (7-18); CALCIUM 9.8 mg/dL (8.5-10.1)
[2024-01-15 19:20] LABS: CREATININE 1.8 mg/dL (0.55-1.3)
[2024-01-15 19:22] LABS: BILIRUBIN,TOTAL 0.3 mg/dL (0.2-1); TOT PROT 6.6 g/dl (6.4-8.2)
[2024-01-15] MEDS: HYDROmorphone HCl 2 MG/ML VIAL IVPUSH ONE (19:28)
[2024-01-15] MEDS ORDERED: CEFTRIAXONE 1 GM/50 ML BAG ONE (22:40)
[2024-01-15] MEDS: CEFTRIAXONE 1 GM in DEXTROSE 5%-WATER - 100 ML IVPB ONE (22:52)
[2024-01-15 23:43] LABS: EPI CELLS 8 /uL (0-25.1); HYALINE CASTS 13 /uL (0-3.1); PH,URINE 5.5 (5.0-8.0); URINE APPEARANCE CLOUDY; URINE BACTERIA 49 /uL (0-1359); URINE BILIRUBIN NEGATIVE (NEGATIVE); URINE COLOR YELLOW; URINE GLUCOSE (UA) TRACE (NEGATIVE); URINE KETONE TRACE (NEGATIVE); URINE LEUK ESTERASE NEGATIVE (NEGATIVE); URINE NITRITE NEGATIVE (NEGATIVE); URINE PROTEIN 1+ (NEGATIVE); URINE RBC 29 /uL (0-23.9); URINE UROBILINOGEN 0.2 mg/dL (0.2-1.0)
[2024-01-15 23:50] LABS: URINE WBC 899.8 /uL (0-25.8)
[2024-01-16] MEDS ORDERED: HYDROmorphone HCl 2 MG/ML VIAL ONE (00:38)
[2024-01-16] MEDS: HYDROmorphone HCl 2 MG/ML VIAL IVPUSH ONE (00:42)
[2024-01-16 01:21] VITALS: BMI 25.8
[2024-01-16] MEDS ORDERED: ACETAMINOPHEN 1000 MG/100 ML BAG IVPB PRN (04:04)
[2024-01-16] MEDS: SODIUM CHLORIDE 1,000 ML IV SCH (05:08)
[2024-01-16] MEDS: INSULIN ASPART SLIDING SCALE (NOVOLOG) 1 VIAL SQ SCH (06:52)
[2024-01-16] MEDS ORDERED: INSULIN ASPART SLIDING SCALE (NOVOLOG) 1 VIAL SQ SCH (07:00)
[2024-01-16] MEDS: ONDANSETRON 4 MG/2 ML VIAL IVPUSH PRN (07:07)
[2024-01-16 07:25] VITALS: RESP 20
[2024-01-16 10:29] LABS: HEMOGLOBIN 13.6 GM/dL (10.7-15.3); MCH 28.7 pg (25.7-33.7); MCHC 33.2 g/dl (32.0-36.0); MEAN CELL VOLUME 86.6 fl (80-96); MEAN PLT VOLUME 8.3 fl (7.5-11.1); PLATELET COUNT 340 10^3/uL (134-434); RBC 4.74 M/mm3 (3.60-5.2); RDW 16.2 % (11.6-15.6); WHITE BLOOD COUNT 11.7 K/mm3 (4.0-10.0)
[2024-01-16 10:42] LABS: POTASSIUM 4.4 mmol/L (3.5-5.1)
[2024-01-16] MEDS: CEFTRIAXONE 2 GM in DEXTROSE 5%-WATER - 50 ML IVPB SCH (10:43)
[2024-01-16] MEDS: EZETIMIBE 10 MG TABLET (FP) PO SCH (10:43)
[2024-01-16] MEDS: PANTOPRAZOLE 40 MG TABLET PO SCH (10:45)
[2024-01-16 10:46] LABS: CALCIUM 9.4 mg/dL (8.5-10.1)
[2024-01-16 10:47] LABS: ALBUMIN 2.9 g/dl (3.4-5.0); BLOOD UREA NITROGEN 35.2 mg/dL (7-18); MAGNESIUM 1.9 mg/dL (1.8-2.4)
[2024-01-16 10:50] LABS: PHOSPHOROUS 3.7 mg/dL (2.5-4.9)
[2024-01-16 10:52] LABS: CREATININE 1.5 mg/dL (0.55-1.3)
[2024-01-16 10:53] LABS: BILIRUBIN,TOTAL 0.4 mg/dL (0.2-1); TOT PROT 6.3 g/dl (6.4-8.2)
[2024-01-16 12:18] VITALS: BP 153/90; PULSE 123; TEMP 98.4
[2024-01-16] MEDS ORDERED: ROSUVASTATIN CA 20 MG TABLET PO SCH (22:00)
== END 2024-01-16 11:46 | disposition left against medical advice (07) | DRG 445 ==
LOC: JER 15:15 → JERBED 22:33 → J6W 01-16 00:52
PROVIDERS: ADMIT Internal Medicine
DX: K81.0 Acute cholecystitis (principal); N17.9 Acute kidney failure, unspecified; R18.8 Other ascites; I11.0 Hypertensive heart disease with heart failure; I50.9 Heart failure, unspecified; E78.5 Hyperlipidemia, unspecified; K21.9 Gastro-esophageal reflux disease without esophagitis; D72.829 Elevated white blood cell count, unspecified; I25.10 Atherosclerotic heart disease of native coronary artery without angina pectoris; J44.9 Chronic obstructive pulmonary disease, unspecified; E11.65 Type 2 diabetes mellitus with hyperglycemia; Z95.5 Presence of coronary angioplasty implant and graft; Z91.148 Patient's other noncompliance with medication regimen for other reason
CPT/HCPCS: 0241U-QW; 36415; 74176-TC; 76705-TC; 80053; 81003; 82962; 83605; 83690; 83735; 84100; 84484; 85025; 85027; 85610; 85730; 87086; 93005; 93010; 99285-25; J0131